=== PATIENT | male | born 1955 | race Caucasian/White ===

== ENCOUNTER → 2023-10-20 11:31 | Outpatient (REF) | payer MEDICARE, SELFPAY | LOC: DHCBC/DCA 11:31 | PROVIDERS: ATTENDING PHYSICIAN Internal Medicine Cardiovascular Disease; FAMILY PHYSICIAN Family Medicine | DX: R07.9 Chest pain, unspecified (principal) | CPT/HCPCS: 78452; 93017; A9500 ==

== ENCOUNTER 2023-10-24 07:34 | Day surgery (SDC) | payer MEDICARE, SELFPAY ==
[2023-10-24] VITALS (16 sets, daily range): BP systolic 141–168; BP diastolic 76–92; BMI 26.3
[2023-10-24] MEDS: NSS 250 ML IV (08:38)
--- NOTE | 2023-10-24 12:28 | ITS.CL.CATH ---
Architecture Analyst - Catheterization
Cardiac Catheterization
Procedure Report:
LEFT HEART CATHETERIZATION
Date of Procedure: October 24, 2023
Referring: Dr. Flip Arce
PROCEDURES:
1. Left heart catheterization with coronary and single-plane left ventriculography
INDICATION: This is a 67-year-old gentleman with a past medical history notable for coronary artery disease and stenting of the mid LAD in January 2007 with placement of a 4.0 x 18 mm Vision stent that was postdilated with a 4.5 mm noncompliant
balloon. He did very well until January 2023 when he presented to [facility] with unstable anginal symptoms and was referred to [facility] for coronary angiography. He was found to have a 90% stenosis within the
stented segment just proximal to the origin of the second diagonal branch. Balloon angioplasty was performed with a 2.5 x 12 mm balloon. OCT was then performed and demonstrated appropriate sizing of the former stent. In addition, and highlighted
that the mechanism of restenosis was entirely based on intimal hyperplasia and subsequent difficulty was encountered when trying to implant the new stent even when using high-pressure noncompliant balloons. The fibrotic lesion was dilated using a
3.0 mm NC balloon and was followed by placement of a 3.25 x 18 mm Xience stent that was implanted at 16 vijay. After stent implantation it was particularly difficult to advance balloons through the stented segment and the OCT catheter would not
recross. The stented segment was postdilated with a 3.5 mm NC balloon to 20 vijay with some residual in-stent restenosis for the fibrotic lesion that proved very difficult to fully expand. He did well for a few months but over the past several weeks
had been experiencing exertional chest tightness. A stress study was notable for development of chest discomfort at 5 minutes of exercise, however, he completed a full 9 minutes on the Goyo protocol. ECG changes occurred with ST depression in
leads II, III, aVF, and V5-V6 with a reversible apical defect. He is now referred for coronary angiography
ACCESS: Right radial artery, 6 Kiswahili sheath
HEMODYNAMICS : (mmHg)
AO (s/d) : 159/84
LV (s/d) : 153/17
LVEDP : 32
CORONARY FINDINGS
DOMINANCE: Right
LEFT MAIN: Normal
LEFT ANTERIOR DESCENDING: The LAD arises normally from the left main. Overlapping stents are noted in the mid LAD with 95% area of in-stent restenosis within the area that had just been treated with balloon angioplasty and stenting in January
2022. The mid to distal LAD is widely patent with only minor irregularities. The stented segment does span a small caliber diagonal branch.
CIRCUMFLEX: The circumflex is a medium caliber nondominant vessel giving rise to a medium caliber bifurcating OM1 which bifurcates in the mid vessel to 2 smaller daughter branches. The circumflex terminates in a moderate caliber OM 2.
RIGHT CORONARY ARTERY: The right coronary artery is a dominant vessel with minor irregularities over its course but no focal obstructive stenosis. The PDA is quite tortuous and free of obstructive stenosis. The posterolateral branch is small.
VENTRICULOGRAPHY: Left ventriculography is performed in an CONDON projection. The digital single-plane left ventricular ejection fraction is visually estimated at 60% with mild anterolateral hypokinesis noted
RADIATION SUMMARY: Fluoro Time (min): 2.7, Dose (mGy): 334, DAP (Gy.cm2) : 24.1
Closure Device: TR band
CONCLUSIONS
1. Restenosis in the mid LAD within the old stent from 2006 and recent stent from 01/2023. The more recent stent was not fully expanded due to the highly fibrotic nature of the restenotic lesion preventing full stent expansion even with
high-pressure balloon inflations. Refer to [facility] catheterization report from 02/03/23. The LAD stented segment has developed recurring 95% in-stent restenosis at the site of recent stenting
2. Stable coronary anatomy in the circumflex and RCA
3. Preserved left ventricular systolic function
RECOMMENDATIONS
1. Will discuss treatment options with the patient and his to include a second attempt at ballooning and re-stenting of the LAD with planned Shockwave intravascular lithotripsy versus minimally invasive direct coronary bypass (MIDCAB) GAXIOLA-LAD.
Copy to: Dr. Flip Arce
== END 2023-10-24 13:00 | disposition home or self-care (01) ==
LOC: CATH 07:34
PROVIDERS: ATTENDING PHYSICIAN Internal Medicine Interventional Cardiology; CONSULT PHYSICIAN Thoracic Surgery (Cardiothoracic Vascular Surgery); FAMILY PHYSICIAN Family Medicine; OTHER PHYSICIAN Internal Medicine Cardiovascular Disease
DX: I25.10 Atherosclerotic heart disease of native coronary artery without angina pectoris (principal); Z95.5 Presence of coronary angioplasty implant and graft; I48.0 Paroxysmal atrial fibrillation; Z86.73 Personal history of transient ischemic attack (TIA), and cerebral infarction without residual deficits; I10 Essential (primary) hypertension; E78.5 Hyperlipidemia, unspecified; G47.33 Obstructive sleep apnea (adult) (pediatric); Z79.01 Long term (current) use of anticoagulants; Z79.02 Long term (current) use of antithrombotics/antiplatelets
CPT/HCPCS: 93458; C1894; Q9967

== ENCOUNTER → 2023-10-26 15:31 | Outpatient (REF) | payer MEDICARE, SELFPAY | LOC: RAD 15:31 | PROVIDERS: ATTENDING PHYSICIAN Thoracic Surgery (Cardiothoracic Vascular Surgery); FAMILY PHYSICIAN Family Medicine; REFERRING PHYSICIAN Internal Medicine Cardiovascular Disease | DX: I25.10 Atherosclerotic heart disease of native coronary artery without angina pectoris (principal); Z01.818 Encounter for other preprocedural examination | CPT/HCPCS: 71275; 74174; Q9967 ==

== ENCOUNTER 2023-10-31 07:23 | Inpatient (IN) | payer MEDICARE, SELFPAY ==
[2023-10-27 12:05] VITALS: BMI 27.3
[2023-10-27 12:59] LABS: % Basophils 0.4 % (0-2); % Eosinophils 2.2 % (0-6); % Immature Granulocytes 0.2 % (0-0.5); % Lymphocytes 36.2 % (20.5-51.1); % Monocytes 11.9 % (1.7-9.3); % Neutrophils 49.1 % (42.2-75.2); Absolute Eosinophils 0.1 10^3/uL (0-0.7); Absolute Lymphocytes 1.7 10^3/uL (1.2-3.4); Absolute Monocytes 0.6 10^3/uL (0.1-0.6); Absolute Neutrophils 2.3 10^3/uL (1.4-6.5); Hematocrit 46.8 % (39.0-52.0); Hemoglobin 16.5 g/dL (13.0-18.0); Mean Corp Hgb Conc. 35.3 g/dL (33.0-37.0); Mean Corpuscular Hgb 31.3 pg (27.0-31.0); Mean Corpuscular Volume 88.6 fL (80.0-94.0); Nucleated Red Blood Cells % 0 % (-); Platelet Count 159 10^3/uL (130-400); Red Blood Cell Count 5.28 10^6/uL (4.70-6.10); Red Cell Dist. Width 12.6 % (11.5-14.5); White Blood Cell Count 4.6 10^3/uL (4.8-10.8)
[2023-10-27 13:09] LABS: Urine Albumin Negative (Neg - Trace); Urine Bilirubin Negative (Negative); Urine Character Clear (Clear); Urine Color Yellow; Urine Glucose 3+ (Negative); Urine Ketone Negative (Negative); Urine Leukocyte Negative (Negative); Urine Nitrite Negative (Negative); Urine Occult Blood Negative (Negative); Urine Urobilinogen Negative (Neg - 1+)
[2023-10-27 13:11] LABS: INR 1.36; PT 16.8 Sec (11.4-14.6)
[2023-10-27 13:12] LABS: APTT 34.8 Sec (23.4-35.0)
[2023-10-27 13:16] LABS: ALT (SGPT) 41 U/L (0-50); AST (SGOT) 44 U/L (17-59); Albumin 5.1 g/dl (3.5-5.0); Alkaline Phosphatase 55 U/L (38-126); Blood Urea Nitrogen 17 mg/dl (9-20); Calcium 9.8 mg/dl (8.4-10.2); Carbon Dioxide 30 mmol/L (22-30); Chloride 97 mmol/L (98-107); Direct Bilirubin 0.1 mg/dl (0.0-0.4); Estimated Creatinine Clearance 78 ml/min; Glucose 99 mg/dl (70-99); Sodium 140 mmol/L (135-145); Total Protein 7.7 g/dl (6.3-8.2); eGFR > 60.00
--- NOTE | 2023-10-27 13:59 | CM ---
Chart reviewed. Met with the patient and his in [facility]. 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 Reviewed preoperative and postoperative instructions and restrictions, along with showering guidelines. Gave patient 2 soaps. Patient is
independent of ADLS, lives with his in a 3 STH, 5 REDD, 0 DME. Patient is agreeable to a visit by CT Transitional RN. Plan is for the patient to return home with CT Transitional RN.
[2023-10-27 14:10] LABS: Glycohemoglobin (HgbA1c) 5.8 % (4.0-5.6)
[2023-10-31] VITALS (7 sets, daily range): BP systolic 112–125; BP diastolic 66–83; BMI 26.6
--- NOTE | 2023-10-31 07:35 | W.CVOR.SURPR ---
CVOR Surgeon Immed Pre Op
-
I have examined this patient prior to performance of the scheduled procedure.
The patient's condition is unchanged from the time of the dictated/written History and
Physical and the patient is able to undergo the scheduled procedure.
MIDCAB +/- KEV Clip
[2023-10-31] MEDS: BACTROBAN 2% OINTMENT 1 APPLIC NASAL ×2 (08:28→19:49)
[2023-10-31] MEDS: PROTONIX 40 MG PO (08:29)
[2023-10-31] MEDS: MAGNESIUM OXIDE 500 MG PO (08:29)
--- NOTE | 2023-10-31 08:49 | PTCARENOTE ---
Patient admitted into room 2265 in anticipation of surgery today. Patient states NPO since midnight, two CHG showers @ home. Prep/clip completed, admission information obtained, medications reconciled. ABO2 sent. EVA Carmella notified HR 40's, patient
admits to sotalol dose last evening - advised nursing hold preop BB. Spouse at bedside, both updated to plan of care.
--- NOTE | 2023-10-31 11:14 | PTCARENOTE ---
Ring removed and given to s/o. Patient transported to [facility] via bed.
--- NOTE | 2023-10-31 11:20 | CM ---
Chart reviewed. Patient is in the OR today. Patient is independent of ADLS, lives with his in a 3 STH, 5 REDD, 0 DME. Plan is for the patient to return home with CT Transitional RN. CM to follow
[2023-10-31 11:50] LABS: ACT+ - POC 126 Seconds (82-134)
[2023-10-31 11:56] LABS: Urine Albumin Negative (Neg - Trace); Urine Bilirubin Negative (Negative); Urine Character Clear (Clear); Urine Color Yellow; Urine Glucose 1+ (Negative); Urine Ketone Negative (Negative); Urine Leukocyte Negative (Negative); Urine Nitrite Negative (Negative); Urine Occult Blood Negative (Negative); Urine Urobilinogen Negative (Neg - 1+)
--- NOTE | 2023-10-31 14:22 | CON.INTV ---
Consultation
Consultation Request
Date/Time Consultation Requested: 10/31/2023 - 1546
Date/Time Consultation Performed: 10/31/2023 - 1414
Requesting Provider: DONNIE Mike
Performing Provider: Barrington Sepulveda MD
Reason for Consultation: s/p MIDCAB
Medical History
-
Chief Complaint: Elective MIDCAB
History of Present Illness:
67-year-old non-smoker with PMHx of CAD s/p BMS to LAD, Hx of CVA, pre-diabetes, HTN, LAZARUS on CPAP, and HLD who p/w coronary artery bypass. Pt known to cardiothoracic surgery with Dr. Snyder with last office visit on 10/26/2023. Pt has known CAD with
Hx of BMS to prox-mid LAD. He has developed restenosis of his BMS stent, and he has developed recurrent chest pain and indigestion. LHC performed earlier this month shows 95% in-stent restenosis of the mid LAD stent. He has excellent functional
status. There was also under-expansion of the most recent stent placed in 2022 due to the fibrotic nature of the restenotic lesion. LV pressures were elevated with LVEDP of 32mmHg. Robotic assisted MIDCAB was recommended, and today he
underwent robotic assisted MIDCAB with GAXIOAL in situ to LAD, and KEV-ligation with 35mm clip. There were no complications, and the pt was TRX to CVICU post-operatively for further care with the [facility] service consulted for further
recommendations.
When I saw the pt he was in bed in NAD. He was already extubated to CPAP in OR. He is currently on auto-CPAP [id number] with current CPAP pressure of 8.7cmH2O. He is saturating 98%, BP via a-line: 131/58, and HR 77. He has a mediastinal chest
tube x1. He is on amiodarone at 0.5mg/min, insulin gtt at 3.5 units/hr and cardene at 1.5 mg/hr. He is awake, answering questions appropriately. Pt's at bedside.
PMHx: HTN, Hx of CVA, CAD s/p BMS to LAD, HLD, A-fib, LAZARUS on CPAP, pre-diabetes, colonic polyps
PSHx: Mastoidectomy, left foot wound drainage, BMS to LAD
Past Medical History
Past Medical History: Other (Above as per HPI)
Past Surgical History: Other (Above as per HPI)
Social History
Tobacco: Non-smoker
Alcohol: Daily (2 glasses of wine)
Personal:
Living: With Family
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
Family History
Family History: Diabetes (Father ) and Hypertension (Father )
Allergies / Home Medications
Allergies
Allergy/AdvReac Type Severity Reaction Status Date / Time
No Known Allergies Allergy Verified 10/26/23 11:30
Home Medications
�Medication �Instructions �Recorded �Confirmed �Last Taken �Type
hydrochlorothiazide 25 mg tablet 25 mg PO DAILY Fluid 01/06/21 10/31/23 10/30/23 08:00 History
retention/Swelling
apixaban 5 mg tablet (Eliquis) 5 mg PO BID Blood clot 05/04/21 10/31/23 10/27/23 20:00 History
prevention/tx
clopidogrel 75 mg tablet (Plavix) 75 mg PO DAILY 10/24/23 10/31/23 10/24/23 08:00 History
empagliflozin 10 mg tablet 10 mg PO DAILY 10/24/23 10/31/23 10/27/23 08:00 History
(Jardiance)
sildenafil 100 mg tablet (Viagra) 100 mg PO DAILY PRN ED 10/24/23 10/26/23 Unknown History
sotalol 80 mg tablet 40 mg PO BID Arrhythmia 10/24/23 10/31/23 10/30/23 20:00 History
lisinopril 40 mg tablet 40 mg PO DAILY 10/26/23 10/31/23 10/28/23 08:00 History
rosuvastatin 20 mg tablet 20 mg PO DAILY 10/26/23 10/31/23 10/30/23 18:00 History
aspirin 81 mg tablet,delayed 81 mg PO DAILY 10/31/23 10/31/23 10/30/23 08:00 History
release
Review of Systems
-
History Source: Patient
All other systems: Negative unless noted
Vitals / Labs / Diagnostic Testing
Vital Signs
Temp Pulse Resp Pulse Ox
98 F 77 11 97
10/31/23 16:30 10/31/23 16:32 10/31/23 16:32 10/31/23 16:32
Lab Data
10/31/23 16:18
Laboratory Results
10/31/23
16:18
pH 7.34 L
pCO2 50 H
pO2 144 H
HCO3 27.0
O2 Delivery Level
Microbiology
10/27/23 12:23 Nose MRSA Screen - Final
No Methicillin Resistant Staphylococcus aureus isolated.
Diagnostic Testing:
Physical Exam
-
HEENT: Normocephalic and Anicteric
Cardiovascular: S1/S2 and Peripheral Edema (negative)
Respiratory: Wheeze (negative), Rales (negative), Rhonchi (negative) and Non-Labored Respirations
GI: Soft, Non Distended, Non Tender and Normal Bowel Sounds
Neurology: Awake and Alert
Skin: Warm and Dry
General: Respiratory Distress (negative), Comfortable, Chills (negative) and Sweats (negative)
Assessment
-
Assessment: 67-year-old non-smoker with PMHx of CAD s/p BMS to LAD, Hx of CVA, pre-diabetes, HTN, LAZARUS on CPAP, and HLD who p/w coronary artery bypass. Pt known to cardiothoracic surgery with Dr. Snyder with last office visit on 10/26/2023. Pt has
known CAD with Hx of BMS to prox-mid LAD. He has developed restenosis of his BMS stent, and he has developed recurrent chest pain and indigestion. LHC performed earlier this month shows 95% in-stent restenosis of the mid LAD stent. He has
excellent functional status. There was also under-expansion of the most recent stent placed in 2022 due to the fibrotic nature of the restenotic lesion. LV pressures were elevated with LVEDP of 32mmHg. Robotic assisted MIDCAB was recommended,
and today he underwent robotic assisted MIDCAB with GAXIOLA in situ to LAD, and KEV-ligation with 35mm clip. There were no complications, and the pt was TRX to CVICU post-operatively for further care with the [facility] service consulted for further
recommendations.
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
Impression:
#CAD involving proximal LAD with in-stent restenosis s/p robotic-assisted minimally invasive direct coronary artery bypass + KEV ligation with 35mm clip (POD #0)
#LAZARUS on auto-CPAP at home ([id number])
#Pre-diabetes
#CAD s/p BMS to prox-mid LAD c/b in-stent restenosis
#Hx of CVA
#HTN
Plan:
Pt already extubated to auto-CPAP in OR
Maintain SpO2 >90-94%
prn nebulized bronchodilators
Pulmonary artery catheter parameters will be followed
Pressors/antihypertensive/inotropes/diuretics will be provided as needed
Maintain MAP>65
Replete electrolytes with K>4, Mg>2
Monitor chest tube output (mediastinal chest tube x1)
Monitor hemoglobin
Monitor platelet count and coags
Transfuse blood products as needed to maintain Hb>7g/dL, plt>50k (given post-operative status)
CT surgery managing chest tubes
Monitor blood sugar to maintain euglycemia with goal BG 140-180
Insulin drip per protocol
Aspiration precautions
DVT prophylaxis
Early nutrition
Early mobilization
Critical care statement: A total of 41 minutes of critical care time was provided for this patient today. This includes management of ventilator, spontaneous breathing trial, arterial blood gases, pressors, of unstable vital signs, evaluation of the
patient at bedside, reviewing the patient's pertinent medical records including radiographs, microbiology, laboratory evaluations, and discussion with primary team and critical care nursing.
[2023-10-31 14:36] LABS: B.E. - POC 1.3 mmol/L; Glucose - POC 95 mg/dl (70-99); HCO3 - POC 26 mmol/L (21-29); Hematocrit - POC 41 % PCV (42-52); Hemodilution- POC Yes; Hemoglobin Calculated - POC 13.8; Ionized Calcium - POC 1.19 mmol/L (1.12-1.27); O2 Saturation %Calculated-POC 99.9 5 (92-96); PCO2 - POC 42 mmHg (35-45); PO2 - POC 339 mmHg (80-100); POC Comment PRE; Potassium - POC 3.6 mmol/L (3.6-5.0); Sodium - POC 141 mmol/L (135-145); pH - POC 7.41 (7.35-7.45)
[2023-10-31 15:32] LABS: B.E. - POC -0.4 mmol/L; Glucose - POC 139 mg/dl (70-99); HCO3 - POC 26 mmol/L (21-29); Hematocrit - POC 37 % PCV (42-52); Hemodilution- POC Yes; Hemoglobin Calculated - POC 12.7; Ionized Calcium - POC 1.09 mmol/L (1.12-1.27); O2 Saturation %Calculated-POC 99.4 5 (92-96); PCO2 - POC 47 mmHg (35-45); PO2 - POC 164 mmHg (80-100); POC Comment ABG; Potassium - POC 3.2 mmol/L (3.6-5.0); Sodium - POC 140 mmol/L (135-145); pH - POC 7.35 (7.35-7.45)
[2023-10-31 15:38] LABS: ACT+ - POC > 1003 Seconds (82-134)
[2023-10-31 15:38] LABS: ACT+ - POC 112 Seconds (82-134)
[2023-10-31 15:39] LABS: Glucose - POC 124 mg/dl (70-99); HCO3 - POC 26 mmol/L (21-29); Hematocrit - POC 38 % PCV (42-52); Hemodilution- POC Yes; Hemoglobin Calculated - POC 12.9; Ionized Calcium - POC 1.41 mmol/L (1.12-1.27); O2 Saturation %Calculated-POC 99.8 5 (92-96); PCO2 - POC 44 mmHg (35-45); PO2 - POC 244 mmHg (80-100); POC Comment POST; Potassium - POC 3.6 mmol/L (3.6-5.0); Sodium - POC 140 mmol/L (135-145); pH - POC 7.39 (7.35-7.45)
--- NOTE | 2023-10-31 15:49 | W.PN.CT.SURG ---
CT Surgery Operative Note
-
CARDIAC SURGERY OPERATIVE REPORT
Preoperative Diagnosis: Coronary Artery Disease with proximal LAD involvement and in-stent restenosis, symptomatic
Postoperative Diagnosis: Same
Procedure(s) Performed:
1. Robotic assisted MIDCAB (single-vessel bypass GAXIOLA in situ to LAD)
2. Robotic assisted harvest of internal mammary artery with anterolateral mini thoracotomy for CABG
3. Transesophageal echocardiography
4. Transonic Flowprobe assessment of GAXIOLA graft
5. Left atrial appendage ligation, 35mm clip
Date of Surgery: 10/31/2023
Comorbidities:
1. Coronary artery disease involving the proximal LAD
2. History of VA status post stenting, with in-stent restenosis in unstable angina requiring additional stenting with restenosis
3. Hypertension
4. Hyperlipidemia
5. History of a CVA in 2014
6. History of paroxysmal atrial fibrillation
7. On chronic anticoagulation and antiarrhythmic drugs
8. LAZARUS on CPAP
9. Prediabetic
Attending Surgeon: Roque Snyder MD, MS
Assistants: Roque Dias PA-C (present and necessary to print shop assistant, exchanging robotic instruments, retraction, suction, exposure, suture management, and wound closure under my direction)
Anesthesiology: Kevin Chopra MD and Nasrin Casanova CRNA
Scrub and Circulating RNs: Aurelia Payton RN, Michelle Bhatia RN
Automobile Lights Assembler: Nasrin Kelsey CCP
Anesthesia: GETA
EBL: per perfusion records
Products: None
Implants: 35mm Pro 2 AtriClip, [id number]
Indication(s) for Procedures: This is a 67-year-old male who had a history of a previous VA and stenting in 2006. He did well since that time and then developed restenosis of the stent and new symptoms. He underwent additional stent procedure
inside of his original bare-metal stent in 2022 and later developed in-stent restenosis with symptoms. The STS risk was discussed with the patient in the office and the shared decision making was to pursue a single-vessel bypass using his
mammary artery to his LAD via a mini invasive approach. Given his history of paroxysmal atrial fibrillation on anticoagulation and antiarrhythmics, I offered to ligate his left atrial appendage at time of surgery.
Conduit(s) Quality/Internal Diameter:
GAXIOLA -good quality, very tortuous vessel, flow probe analysis, mean flow of 16.8 cc/min, max flow 40 cc a minute n, PI of 2.6
Target(s) Quality/Internal Diameter:
LAD -good quality vessel, accommodated 2.0 mm shunt
Findings: Left ventricular ejection fraction preoperatively was 65% with no regional wall motion abnormalities. Following surgery his EF remained the same 65%. There were no new regional wall motion abnormalities at the inclusion of the case. The
GAXIOLA was harvested in a skeletonized fashion. The mammary graft was verified with Transonic Flowprobe to have excellent signals as listed above. His left atrial appendage was verified to be free of any thrombus or debris preoperative. It was
sized to a 35 mm clip which was deployed and then verified by JENNA to be totally occlusive.
Description of Procedure: The patient was taken to the operating room. Their identity and procedure to be performed were verified and they were positioned supine on the operating table. Induction via general anesthesia with endotracheal intubation
was performed and central venous access and arterial monitoring were inserted. A preoperative transesophageal echocardiogram was performed to assess cardiac function and valvular function. The patient was then prepped and draped from chin to feet in
a sterile fashion and positioned with left side bumped up and left arm down. A preoperative time-out was performed with all members of the team present. A Veress needle was used to enter the chest after stopping ventilation with the left lung
verified by anesthesia. We started with slow pressure insufflation which they tolerated. An 8 mm port was inserted in the fourth intercostal space laterally and a camera was inserted verifying no intrathoracic iatrogenic injuries. 2 additional
ports(8 mm and 12 mm mm) were placed along the midaxillary line on either side of the camera port. The robotic platform was then docked and targeted towards the mammary. At this point, using a spatula cautery a small pericardiotomy was made at the
undersurface inferior to the phrenic nerve. I then extended the incision along the pericardium towards the foot and then up towards the head. The left atrial pannus was fully visualized. The right robotic arm was then used to elevate the
pericardium and removed to expose the left atrial appendage in its entirety. The c2 tactical analysis technician was removed from the 12 mm port and a 35 mm clip was inserted and then deployed flush to the base after verifying JENNA that was totally occlusive with no
residual significant stump. The mammary was harvested in a skeletonized fashion. Once sufficient length was obtained, an anterior pericardiotomy was created to identify the distal target. This was marked with a marker robotically. The cardiac
stabilizer arm was then inserted through one of the robotic ports under direct vision and aimed up towards the anterior chest wall. Full heparinization was given (a total of 33,000 units). 3 Hem-o-caren clips were used to occlude and divide the
mammary distally at its bifurcation. The robot platform was then undocked and the patient and a left anterior thoracotomy was created over the target vessel. Upon entering the thoracic cavity the mammary and LAD were visible. The mammary was
divided after placing a 5-0 stay suture on either side of the mammary. A soft tissue and thoracotomy retractor was placed to facilitate exposure and a pericardial well was created. The ACT was confirmed to be over 400.
The cardiac suction stabilizer was used to isolate the LAD target. The distal end of the mammary was prepped and beveled to size. We verified orientation and length of the MARIE and found brisk flow. A coronary arteriotomy was created and enlarged
with coronary henriquez scissors. A 2mm shunt was inserted to facilitate exposure and continued [place] coronary perfusion. An end-to-side anastomosis was created with a 7-0 prolene. The bulldog on the mammary was removed which demonstrated excellent
graft flow. The shunt was then remove and demonstrated excellent [place] flow. Appropriate hemostasis was confirmed. The mammary graft was inspected and was free from kinking or twisting and flowprobe evaluation demonstrated good flow and PI. A test
dose of protamine was administered and the patient was monitored for any adverse reaction before resuming protamine. A 19F gerber drain into the pericardium and through the posterior pericardiotomy into the left chest. Fascia was approximated with #1
vicryl suture. Local analgesia was administered to the surgical sites. The subcutaneous, dermis and epidermis were closed in layers in a running fashion. The skin wound was cleansed and dressed.
All instrument, sponge, and needle counts were confirmed to be correct x 2 at the end of the operation. The patient was transferred to the cardiac intensive care unit extubated in critical but stable condition.
I, Dr. Roque Snyder, was present, scrubbed for, and performed all critical elements of this procedure.
Roque Snyder MD, MS
Cardiothoracic Surgeon
[facility]
This operative dictation was created using the Medisse dictation system. Please excuse any grammatical, typographical, or 'sound alike' errors
[2023-10-31] MEDS: TYLENOL PO (15:55)
[2023-10-31] MEDS: PACERONE PO (16:03)
[2023-10-31] MEDS: NOVOLOG FLEXPEN SC ×2 (16:10→16:45)
[2023-10-31] MEDS: NEURONTIN PO (16:11)
[2023-10-31 16:30] LABS: Glucose - Point of Care 131 mg/dl (70-99)
[2023-10-31 16:37] LABS: B.E. 0.3 mmol/L; Ionized Calcium 1.23 mMOL/L (1.15-1.33); O2 Saturation % 99.8 % (94-98); PCO2 50 mmHg (35-48); PO2 144 mmHg (83-108); Potassium 3.5 mMOL/L (3.5-5.1); Sodium 134 mMOL/L (136-145); pH 7.34 (7.35-7.45)
[2023-10-31 16:39] LABS: Hematocrit 42.8 % (39.0-52.0); Hemoglobin 15.5 g/dL (13.0-18.0); Platelet Count 141 10^3/uL (130-400)
[2023-10-31] MEDS: NSS 500 IV (16:44)
[2023-10-31] MEDS: ANCEF 10 IV ×2 (16:44)
--- NOTE | 2023-10-31 16:45 | PTCARENOTE ---
Patient received from CVOR s/p midCABG/KEV. RIJ Cordis w/CVP transduced, R radial arterial line present - leveled, flushed, and calibrated w/good waveforms returned. L laterally terminating mediastinal chest tube placed to -20cm suction, no air leak
appreciated. Herrera catheter to gravity. All procedural sites stable. Cardiac rhythm oscillating between NSR v afib, Dr. Snyder notified. Spouse to bedside, updated. See work list for full assessment, interventions performed, and intravenous infusions
and titrations.
[2023-10-31 16:52] LABS: APTT 30.6 Sec (23.4-35.0); Blood Urea Nitrogen 13 mg/dl (9-20); Estimated Creatinine Clearance 121 ml/min; Glucose 135 mg/dl (70-99); Magnesium 1.9 mg/dl (1.6-2.3); PT 17.9 Sec (11.4-14.6)
[2023-10-31] MEDS: KCL 50 IV (16:53)
[2023-10-31 17:06] LABS: Glucose - Point of Care 159 mg/dl (70-99)
--- NOTE | 2023-10-31 17:07 | W.PN.CARDCBS ---
Addendum entered and electronically signed by Pearl Umana MD 10/31/23 17:33:
I saw and examined the patient.
The Manager Multicultural's note was reviewed and I agree with the note.
Comment: Overall patient is doing well. He was extubated intraoperatively post single-vessel CABG.
Vital signs and lab work reviewed. He is off pressors currently and off sedation, mentating well. On exam patient is still somnolent but arousable to voice, oriented x 3, irregularly irregular rhythm, tachycardic, normal S1 and S2, lungs are clear
to auscultation anteriorly, abdomen is soft, nontender, nondistended with active bowel sounds, warm extremities
Initial EKG postoperatively was noted to be in sinus rhythm but on telemetry patient appears to be in atrial fibrillation which she has a history of.
Recommendations:
1. Continue with postoperative care.
2. Amiodarone drip is being started with last dose of sotalol 40 mg twice daily being last night. We will continue to monitor QTc on EKG.
3. Currently Eliquis is on hold since preop. We will discuss resuming when safe from a surgical standpoint.
Pearl mUana MD, [facility], [facility]
Original Note:
Today's Communication / Plan
-
Amiodarone gtt being started, last dose of sotalol 40 mg BID was last night, follow QTc on ECG in AM
No flow is noted distal to the clip in the appendage by color Doppler on intra-op JENNA, Eliquis on hold pre-op
Impression / Plan
-
PCP: Dr. Delroy Dhillon
Cardiology: Dr. Arce
Impression:
CAD
s/p NSTEMI with BMS to LAD and PTCA Diag-1 01/2007
s/p CABG 10/31/23
Afib with RVR
Paroxysmal Afib with RVR
diagnosed following Linq implant 01/2021
Chronic sotalol therapy
Chronic Eliquis OAC
Linq implant 01/2021
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
h/o CVA 01/2015
HTN
Hyperlipidemia
LAZARUS on CPAP
Stress echo 06/11/14: Completed 13 METS, EF 55-60%, no evidence of myocardial ischemia on SE images
Echo 01/30/15: EF 55-60%, trace MR, no aortic regurgitation
JENNA 01/07/21: EF 55-60%, no thrombus in KEV, mild to mod aortic plaque, mildly dilated aortic root 4.0 cm at Sinus of Valsalva, normal interatrial septum, no evidence of shunt by color flow Doppler or agitated saline
Plan:
-Patient had elective cath at 10/24/23 and was found to have restenosis in the mid LAD within the old stent from 2006 and recent stent from 01/2023. The more recent stent was not fully expanded due to the highly fibrotic nature of the restenotic
lesion preventing full stent expansion even with high-pressure balloon inflations. The LAD stented segment had developed recurring 95% in-stent restenosis at the site of recent stenting. Patient was referred to CT surgical team for CABG evaluation
and presented today for elective CABG.
-Post-op ECG shows SR without ischemic changes, but patient later developed recurrence of rapid Afib.
-Patient with known h/o paroxysmal Afib and he is chronically on sotalol 40 mg BID. Last dose of sotalol was 10/30/23 PM. Amiodarone gtt being ordered. Follow QTc on tele and with ECG in AM
-Patient is chronically on Eliquis 5 mg BID which was held for surgery. He had KEV ligation 10/31/23 and no flow is noted distal to the clip in the appendage by color Doppler on intra-op JENNA.
-Cardene running at 5.
-Will follow
Progress Note - Windows Vmware Administrator
Subjective
Date of Service: October 31, 2023
No chest pain
Objective
Labs:
10/31/23 16:18
Labs
Hgb 15.5 g/dL (13.0-18.0) 10/31/23 16:18
Hct 42.8 % (39.0-52.0) 10/31/23 16:18
Plt Count 141 10^3/uL (130-400) 10/31/23 16:18
PT 17.9 Sec (11.4-14.6) H 10/31/23 16:18
INR 1.50 10/31/23 16:18
APTT 30.6 Sec (23.4-35.0) 10/31/23 16:18
Sodium 140 mmol/L (135-145) 10/27/23 12:23
Potassium 4.0 mmol/L (3.5-5.1) 10/27/23 12:23
BUN 13 mg/dl (9-20) 10/31/23 16:18
Creatinine 0.6 mg/dL (0.7-1.3) L 10/31/23 16:18
Glucose 135 mg/dl (70-99) H 10/31/23 16:18
Vital Signs and I&O:
Vital Signs
Temp Pulse Resp Pulse Ox
98 F 77 11 97
10/31/23 16:30 10/31/23 16:32 10/31/23 16:32 10/31/23 16:32
Vital Signs
Temp Pulse Resp Pulse Ox
98 F 77 11 97
10/31/23 16:30 10/31/23 16:32 10/31/23 16:32 10/31/23 16:32
Physical Exam
Physical Exam
GEN: NAD. AAOx3
HEENT: MMM
LUNGS: Wearing NRB, no audible wheeze
CV: Reg, S1/S2, no murmur
ABD: ND
EXT: No edema B/L
NEURO: Gross non-focal
SKIN: No rash
[2023-10-31] MEDS: CORDARONE 518 MG IV (17:17)
[2023-10-31] MEDS: CORDARONE 103 MG IV (17:18)
[2023-10-31 18:03] LABS: Glucose - Point of Care 154 mg/dl (70-99)
--- NOTE | 2023-10-31 18:40 | PTCARENOTE ---
Patient CPAP brought in from home. Patient transitioned from 8l simple mask to 6lnc w/CPAP overlying. SaO2 @ 97%, tolerating well.
[2023-10-31 19:08] LABS: Glucose - Point of Care 127 mg/dl (70-99)
[2023-10-31] MEDS: LOW STRENGTH ASPIRIN 81 MG PO (19:48)
[2023-10-31] MEDS: SENOKOT-S 1 TABLET PO (19:49)
[2023-10-31] MEDS: FLEXERIL 5 MG PO (19:49)
[2023-10-31] MEDS: MAGNESIUM SULFATE 50 IV (19:50)
[2023-10-31 20:10] LABS: Glucose - Point of Care 127 mg/dl (70-99)
[2023-10-31 20:16] LABS: Hematocrit 42.1 % (39.0-52.0); Hemoglobin 15.7 g/dL (13.0-18.0); Platelet Count 148 10^3/uL (130-400)
--- NOTE | 2023-10-31 20:32 | PTCARENOTE ---
Assumed care of pt from dayshift RN. Walking rounds completed. Pt AAOx3. Afebrile. ROLAND. Pt SR on the tele monitor. HR 80s. BP 120-130s/50-60s. CVP ~2-6. Palpable pulses throughout. Pt on 4 L NC w/ CPAP mask. POX 97-98%. Lung sounds diminished. IS
~500. Deep breathing encouraged. Left mediastinal CTx1 to -20 suction, no airleak noted at this time, and output WNL. Abdomen soft/nontender. Hypoactive BS. Denies nausea. Herrera catheter CDI and draining yellow urine. Right IJ cordis w/ SLICC & CVP
CDI. Right radial a-line CDI. All lines leveled, zeroed, and flushed. Right AC PIV CDI. Glycemic protocol followed. Cardene and Amiodarone infusing as ordered. See worklist for full nursing assessment and interventions. Pt repositioned in bed. Call
echeverria within reach.
[2023-10-31 21:07] LABS: Glucose - Point of Care 140 mg/dl (70-99)
[2023-10-31] MEDS: LOPRESSOR 12.5 MG PO (21:08)
[2023-10-31] MEDS: NEURONTIN 100 MG PO (21:08)
[2023-10-31] MEDS: PACERONE 200 MG PO (21:09)
[2023-10-31] MEDS: TYLENOL 1000 MG PO (21:09)
[2023-10-31 23:15] LABS: Glucose - Point of Care 115 mg/dl (70-99)
[2023-10-31] MEDS: ANCEF 5 IV (23:20)
[2023-10-31] MEDS: ROXICODONE 5 MG PO (23:20)
[2023-11-01] VITALS (23 sets, daily range): BP systolic 98–147; BP diastolic 61–81; PULSE 51–59; O2SAT 97–98; BMI 26.9
--- NOTE | 2023-11-01 00:29 | PTCARENOTE ---
Pt reassessed. Pt sinus rhythm to sinus cirilo on the tele monitor. HR 50-60s. BP 120s/50s. Cardene infusion titrated off. CVP ~1-3. Left mediastinal CT assessment unchanged from original. Pt remains on home CPAP machine w/ 4 L NC. POX 98-99%. Herrera
catheter CDI and pt voiding yellow urine >30 ml/hr. No nausea. Pt tolerating sips of water and oral meds. All surgical sites stable. Right IJ cordis w/ SLICC and CVP CDI. Right arterial line CDI. All lines leveled zeroed and flushed. Amiodarone drip
infusing as ordered. Glycemic protocol followed. Call echeverria within reach.
--- NOTE | 2023-11-01 01:07 | W.PN.CT ---
Today's Communication / Plan
-
Plan:
-No major issues overnight. Hemodynamically and neurologically intact
-Successfully extubated in the OR 10/31/23
-Weaned Cardene gtt, remains on insulin gtt per protocol. D/C'd amiodarone gtt for postop a-fib with RVR d/t sinus bradycardia @ 50 bpm
-No swan, U/O since OR 970 mL
-Monitor chest tube output: med 120/230
-Cont. current meds (ASA, Crestor, Amiodarone, Lopressor; will add Plavix, resumption of Eliquis with d/c of either ASA or Plavix on POD#4)
-D/C'd a-line this AM @ 0430
-Will transition off insulin gtt tomorrow since pt is a diabetic
-Telemetry phase once of insulin gtt
-Will d/c marrero catheter @ 0600
-No swan
-No temporary PW
-Maintain cordis (will d/c on POD#3)
-Wean off of O2 as tolerated
-Encourage use of IS
-OOB into chair/Ambulate
Assessment / Plan
-
Assessment:
-S/P Robotic assisted MIDCAB (single-vessel bypass GAXIOLA in situ to LAD)/ Robotic assisted harvest of internal mammary artery with anterolateral mini thoracotomy for CABG/ Left atrial appendage ligation, 35mm clip, by Dr. Snyder, 10/31/23, pod#1
-Coronary artery disease involving the proximal LAD, in-stent restenosis
-Unstable angina
-Hx NSTEMI S/P PCI with BMS to LAD and PTCA to D1, 01/2007
-LVEF 60% per intraop JENNA
-Mild dilated asc. aorta (3.7 cm)
-Hx CVA (2014 and 2020) S/P Linq recorder implant, 01/2021
-PAF (on chronic Eliquis)
-HTN
-HLD
-T2DM (hgb A1C 5.8)
-LAZARUS (uses CPAP)
-S/p b/l mastoidectomy
-S/p R rotator cuff repair
-Acute postop atelectasis
-Acute postop hypovolemia with subsequent hypervolemia
-Acute postop EKG changes c/w acute pericarditis (+rub)
-Acute postop A-fib with RVR, converted on Amiodarone bolus x 1 and gtt
Discussed patient care with: Cardiology, Nursing, Respiratory Therapy, Pharmacy and Care Team
Subjective
Procedure
S/P Robotic assisted MIDCAB (single-vessel bypass GAXIOLA in situ to LAD)/ Robotic assisted harvest of internal mammary artery with anterolateral mini thoracotomy for CABG/ Left atrial appendage ligation, 35mm clip, by Dr. Snyder, 10/31/23
-
Date of Service: November 01, 2023
Pt c/o mild incisional pain, otherwise feels well
Objective Data
-
PT 17.9 Sec (11.4-14.6) H 10/31/23 16:18
INR 1.50 10/31/23 16:18
APTT 30.6 Sec (23.4-35.0) 10/31/23 16:18
Vital Signs
Vital Signs
Temp Pulse Resp BP Pulse Ox
98.6 F 56 10 104/64 98
11/01/23 00:00 11/01/23 00:05 11/01/23 00:05 11/01/23 00:00 11/01/23 00:05
CT Intake/Output/Weight
10/31/23 10/31/23 11/01/23
06:59 18:59 06:59
Intake Total 176.1 / 596.3 420.2 / 596.3
Output Total 485 / 935 450 / 935
Balance -308.9 / -338.7 -29.8 / -338.7
SaO2: 98 (4L)
Physical Exam
-
General: Awake, Oriented and AOx3
Cardiovascular: Regular rate & rhythm, No Murmurs, Rub (likely d/t acute pericarditis) and No Gallop
Respiratory: Decreased Breath Sounds (at bases, otherwise clear)
Sternum: Stable
Incision: Clean, Dry, Intact and Dressing Intact
Extremities: No Edema
Data Reviewed
-
Lab Results: Results Reviewed
Medications: Active Meds Reviewed
Chest X-Ray: Report Reviewed and Image Reviewed
ECG: Report Reviewed and Image Reviewed
[2023-11-01 01:10] LABS: Glucose - Point of Care 102 mg/dl (70-99)
[2023-11-01 03:12] LABS: Glucose - Point of Care 113 mg/dl (70-99)
[2023-11-01 03:44] LABS: INR 1.41; PT 17.1 Sec (11.4-14.6)
[2023-11-01 03:45] LABS: Hematocrit 39.8 % (39.0-52.0); Hemoglobin 14.6 g/dL (13.0-18.0); Mean Corp Hgb Conc. 36.7 g/dL (33.0-37.0); Mean Corpuscular Volume 84.5 fL (80.0-94.0); Mean Platelet Volume 9.2 fL (7.4-10.4); Platelet Count 159 10^3/uL (130-400); Red Blood Cell Count 4.71 10^6/uL (4.70-6.10); Red Cell Dist. Width 12.5 % (11.5-14.5); White Blood Cell Count 10.8 10^3/uL (4.8-10.8)
[2023-11-01 03:58] LABS: Blood Urea Nitrogen 17 mg/dl (9-20); Calcium 8.8 mg/dl (8.4-10.2); Carbon Dioxide 24 mmol/L (22-30); Chloride 102 mmol/L (98-107); Estimated Creatinine Clearance 104 ml/min; Glucose 113 mg/dl (70-99); Magnesium 2.3 mg/dl (1.6-2.3); Potassium 4.1 mmol/L (3.5-5.1); Sodium 138 mmol/L (135-145); eGFR > 60.00
[2023-11-01 04:46] LABS: Hepatitis C Antibody Negative (Negative)
[2023-11-01 05:00] LABS: Glucose - Point of Care 100 mg/dl (70-99)
--- NOTE | 2023-11-01 05:00 | PTCARENOTE ---
Pt reassessed. Pt sinus cirilo on the tele monitor. HR 50s. BP 110s/60-70s. Pt using home CPAP machine. POX 94-96%. CT assessment unchanged. Herrera catheter intact and draining yellow urine. No nausea. All surgical sites stable. Labs drawn and sent.
EKG obtained. Right radial a-line and SLICC dc'd per CTPA. Pt repositioned in bed. GLycemic protocol followed. Amiodarone drip turned off ~0100 due to HR in the 40-50s. Call echeverria within reach.
[2023-11-01] MEDS: TYLENOL 1000 MG PO ×3 (05:39→21:08)
[2023-11-01] MEDS: TORADOL 15 MG IV ×3 (05:39→18:01)
[2023-11-01 07:03] LABS: Glucose - Point of Care 118 mg/dl (70-99)
--- NOTE | 2023-11-01 07:12 | ECGCV ---
<Chandra Mancera> notified of ECG critical value identified by electronic interpretation on ECG completed on <11/01/2023>, at <0400>.
--- NOTE | 2023-11-01 07:32 | W.PN.ANS.POP ---
Anesthesia Post Operative
- Anesthesia Post Op Note
Vital Signs Stable-See Nursing Note: Yes
Airway Patent: Yes
Adequate Pain Control: Yes
Change in Mental Status: No
Current Postoperative Nausea & Vomiting: No
Anesthesia Complications: No
General Anesthetic Recall: No
Unplanned Admission: No
Post Op Hydration Adequate: Yes
--- NOTE | 2023-11-01 08:01 | W.PN.INTV ---
Today's Communication / Plan
Recommendations
Up OOB as tolerated
Removal of R�IJ cordis per CT surgery team
Cardiac rehab consult
Pain control
Encourage incentive spirometer use
Outpatient pulmonary follow-up for his LAZARUS on CPAP by his braille teacher, Dr. Duran
Insulin drip is planned to stop this afternoon, at which point would recommend insulin SQ supplementation. He will be transferred to CVICU�telemetry status after insulin drip is discontinued. At that point Er Rn/Pulmonary service will sign
off. Please call back with any pulmonary questions.
Assessment
-
Assessment: 67-year-old non-smoker with PMHx of CAD s/p BMS to LAD, Hx of CVA, pre-diabetes, HTN, LAZARUS on CPAP, and HLD who p/w coronary artery bypass. Pt known to cardiothoracic surgery with Dr. Snyder with last office visit on 10/26/2023. Pt has
known CAD with Hx of BMS to prox-mid LAD. He has developed restenosis of his BMS stent, and he has developed recurrent chest pain and indigestion. LHC performed earlier this month shows 95% in-stent restenosis of the mid LAD stent. He has
excellent functional status. There was also under-expansion of the most recent stent placed in 2022 due to the fibrotic nature of the restenotic lesion. LV pressures were elevated with LVEDP of 32mmHg. Robotic assisted MIDCAB was recommended,
and today he underwent robotic assisted MIDCAB with GAXIOLA in situ to LAD, and KEV-ligation with 35mm clip. There were no complications, and the pt was TRX to CVICU post-operatively for further care with the Er Rn service consulted for further
recommendations.
Chronic conditions CORPORATE GENERAL MANAGER: HTN, Hx of CVA, CAD s/p BMS to LAD, HLD, A-fib, LAZARUS on CPAP, pre-diabetes, colonic polyps
Impression:
#CAD involving proximal LAD with in-stent restenosis s/p robotic-assisted minimally invasive direct coronary artery bypass + KEV ligation with 35mm clip (POD #1)
#LAZARUS on auto-CPAP at home ([id number])
#Pre-diabetes
#CAD s/p BMS to prox-mid LAD c/b in-stent restenosis
#Hx of CVA
#HTN
Plan:
Pt was extubated to auto-CPAP in OR post-operatively on 10/31/2023
Maintain SpO2 >90-94%
prn nebulized bronchodilators - not currently bronchospastic
Continue with nocturnal CPAP; he follows with braille teacher, Dr. Duran, and I advised him to continue with regular scheduled follow-up regarding his LAZARUS management. He showed me his CPAP usage sunni on his phone and his residual AHI over this last
month of October 2023 was an average of 2�4
Removal of R�IJ cordis per CT surgery team
Maintain MAP>65
Replete electrolytes with K>4, Mg>2
Monitor chest tube output (mediastinal chest tube x1)
Monitor hemoglobin
Monitor platelet count and coags
Transfuse blood products as needed to maintain Hb>7g/dL, plt>50k (given post-operative status)
CT surgery managing chest tubes
Monitor blood sugar to maintain euglycemia with goal BG 140-180
Insulin drip per protocol --> plan to titrate off this afternoon at which point would start insulin SQ administration to maintain BG goal as above
Aspiration precautions
DVT prophylaxis
Early nutrition
Early mobilization
Patient is stable on room air, saturating 94% and using his CPAP with sleep. Patient already has follow-up with his braille teacher, Dr. Duran, which I advised to continue with regular scheduled follow-up. Insulin drip is planned to stop this
afternoon, at which point would recommend insulin SQ supplementation. He will be transferred to CVICU�telemetry status after insulin drip is discontinued. At that point Er Rn/Pulmonary service will sign off. Thank you for allowing us to be
involved in the care of this patient. Please call back with any pulmonary questions.
Data:
CXR 11/01/2023: The right internal jugular approach catheter appears slightly kinked proximally, otherwise stable positioning the support lines and tubes; Minimal left basilar atelectasis, otherwise the lungs are clear. No pneumothorax.
Total time spent today was 75 minutes for this encounter. Time includes reviewing laboratory test/imaging results, reviewing pertinent medical records, obtaining and reviewing medical history, performing an appropriate exam, ordering medications,
tests and procedures. Time also includes documentation of this encounter, coordinating patient care and communicating with other healthcare professionals. Total time does not include separately billed tests performed on this date of service.
Subjective Dataa
Subjective Data
Date of Service:
Date of Service: November 01, 2023
Chief Complaint: Er Rn Follow Up and Pulmonary Follow Up
Subjective:
Patient was seen and evaluated today bedside. Patient wore his CPAP overnight. Patient's is at bedside currently and all questions were answered. He currently is on insulin drip at 3.5 units/hr, and heart rate 54 with BP 114/72 and
saturating 94% on room air. R�IJ cordis in place. He has some chest discomfort when he uses the incentive spirometer otherwise he feels well denying SOB, chest pain at rest, DIAZ, abdominal pain, nausea, fevers or chills. Mediastinal chest tube x 1
placed well.
Review of Systems
General: Other (Negative unless mentioned above)
Objective Data
Data Reviewed
Vital Signs / I&O / Oxygen:
Vital Signs
Temp Pulse Resp BP Pulse Ox
98.2 F 56 16 115/77 97
11/01/23 09:00 11/01/23 09:00 11/01/23 07:00 11/01/23 08:52 11/01/23 09:00
Intake and Output
10/31/23 11/01/23 11/02/23
06:59 06:59 06:59
Intake Total 723.8 / 735.1 272.6 / 272.6
Output Total 1230 / 1290 90 / 90
Balance -506.2 / -554.9 182.6 / 182.6
SaO2 97
Nasal Cannula flow liters per 4
minute
Physical Exam
General: Respiratory Distress (negative), Comfortable and Good Appetite
HEENT: Normocephalic and Anicteric
Cardiovascular: S1-S2 and Peripheral Edema (negative)
Respiratory: Wheeze (negative), Crackles (negative), Rhonchi (negative), Non-Labored Respirations and Chest Tube (Mediastinal chest tube x 1)
GI: Soft, Non Distended, Non Tender and Normal Bowel Sounds
Neurology: AO x 3 and Tremors (negative)
Skin: Warm, Dry, Jaundice (negative) and Rash (negative)
Labs/Micro/Reports
Lab Data
11/01/23 03:08
11/01/23 03:08
Laboratory Results
10/31/23 11/01/23
16:18 03:08
PT 17.9 H 17.1 H
INR 1.50 1.41
APTT 30.6
pH 7.34 L
pCO2 50 H
pO2 144 H
HCO3 27.0
O2 Delivery Level
[2023-11-01] MEDS: PACERONE 200 MG PO (08:48)
[2023-11-01] MEDS: LASIX 40 MG IV (08:48)
[2023-11-01] MEDS: ANCEF 5 IV ×2 (08:48→16:07)
[2023-11-01] MEDS: PLAVIX 75 MG PO (08:49)
[2023-11-01] MEDS: NEURONTIN 100 MG PO ×3 (08:49→21:08)
[2023-11-01] MEDS: COLCHICINE 0.6 MG PO (08:49)
[2023-11-01] MEDS: SENOKOT-S 1 TABLET PO ×2 (08:49→19:50)
[2023-11-01] MEDS: PROTONIX 40 MG PO (08:49)
[2023-11-01] MEDS: LOW STRENGTH ASPIRIN 81 MG PO (08:49)
[2023-11-01] MEDS: MAGNESIUM OXIDE 500 MG PO ×2 (08:50→19:50)
[2023-11-01 08:52] LABS: Glucose - Point of Care 329 mg/dl (70-99)
[2023-11-01] MEDS: LOPRESSOR 12.5 MG PO ×2 (08:52→19:50)
[2023-11-01] MEDS: BACTROBAN 2% OINTMENT 1 APPLIC NASAL ×2 (08:52→19:51)
[2023-11-01 08:55] LABS: Glucose - Point of Care 146 mg/dl (70-99)
--- NOTE | 2023-11-01 09:00 | PTCARENOTE ---
Blood glucose obtained, 329. Rechecked, 146, more consistent w/prior findings.
[2023-11-01] MEDS: NOVOLOG FLEXPEN SC (09:35)
--- NOTE | 2023-11-01 09:51 | PTCARENOTE ---
Patient received from multimedia educational specialist resting oob in chair, AAO X 3, states pain controlled at this time. NSR via cm, SaO2 @ 94% on RA. RIJ Cordis w/kvo infusing. Insulin infusing peripherally, titrating per glycemic protocol. L laterally terminating
mediastinal chest tube to -20cm suction, no air leak noted. All procedural sites stable. Herrera d/c'd @ 0600, DTV, denies urge. All procedural sites stable. Patient updated to plan of care for the day, in agreement. See work list for full assessment
and interventions performed.
[2023-11-01 10:56] LABS: Glucose - Point of Care 155 mg/dl (70-99)
[2023-11-01] MEDS: FOLVITE 1 MG PO (11:58)
--- NOTE | 2023-11-01 12:15 | CM ---
Chart reviewed. Patient OOB sitting in the chair, at bedside. Patient is independent of ADLS, lives with his in a 3 S[address], 5 REDD, 0 DME. Plan is for the patient to return home with CT Transitional RN. CM to follow
[2023-11-01] MEDS: NOVOLOG FLEXPEN 4 UNITS SC (12:20)
--- NOTE | 2023-11-01 12:30 | W.PN.CARDCBS ---
Addendum entered and electronically signed by Flip Arce MD 11/01/23 13:15:
I saw and examined the patient.
The BARKEEP or PA's note was reviewed and I agree with the note.
Comment: General: Well developed, well nourished in NAD.
Neck: Supple, no JVD, HJR, carotids +2 B/L, no bruits bilaterally.
Heart: Non displaced PMI, RRR, no murmurs, No S3, S4, pericardial friction rub
Lungs: Scattered rhonchi
Extremities: No clubbing, cyanosis or edema bilaterally.
Neuro: Grossly nonfocal, awake, alert and oriented x3.
Stable cardiology status status post MIDCAB. In sinus rhythm at present. Amiodarone has been started but will ask CT surgery whether he could be put back on sotalol which he has been on for couple years with reasonable control of A-fib. Continue
colchicine for pericarditis. Eventual restart of Eliquis. Discussed with CT surgery
Original Note:
Today's Communication / Plan
-
Now ordered amiodarone 200 mg TID
Follow on tele
Being treated for pericarditis
Impression / Plan
-
PCP: Dr. Delroy Dhillon
Cardiology: Dr. Arce
Impression:
CAD
s/p NSTEMI with BMS to LAD and PTCA Diag-1 01/2007
s/p CABG 10/31/23
Afib with RVR
Paroxysmal Afib with RVR post-op that spontaneously converted to SR
diagnosed following Linq implant 01/2021
Chronic sotalol therapy
Chronic Eliquis OAC
Linq implant 01/2021
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
h/o CVA 01/2015
HTN
Hyperlipidemia
LAZARUS on CPAP
Stress echo 06/11/14: Completed 13 METS, EF 55-60%, no evidence of myocardial ischemia on SE images
Echo 01/30/15: EF 55-60%, trace MR, no aortic regurgitation
JENNA 01/07/21: EF 55-60%, no thrombus in KEV, mild to mod aortic plaque, mildly dilated aortic root 4.0 cm at Sinus of Valsalva, normal interatrial septum, no evidence of shunt by color flow Doppler or agitated saline
Plan:
-Immediate post-op ECG was in SR on 10/31/23, but patient recurred with Afib and has known paroxysmal Afib. Chronically on sotalol 40 mg BID and last dose was 10/30/23 PM. Amiodarone gtt started 10/31/23 afternoon and patient later converted to SR.
Remains in SR/SB on 11/01/23 AM. Currently ordered amiodarone 200 mg TID.
-QTc 468 ms on ECG 11/01/23
-Patient is chronically on Eliquis 5 mg BID which was held for surgery. He had KEV ligation 10/31/23 and no flow is noted distal to the clip in the appendage by color Doppler on intra-op JENNA. Plan is to resume Eliquis at time of d/c
-ECG 11/01/23 AM reviewed by me and CT surgery note reviewed, they are treating for pericarditis, colchicine 0.6 mg daily and Toradol 15 mg IV q 6 hours ordered
HPI: Patient had elective cath at 10/24/23 and was found to have restenosis in the mid LAD within the old stent from 2006 and recent stent from 01/2023. The more recent stent was not fully expanded due to the highly fibrotic nature of the
restenotic lesion preventing full stent expansion even with high-pressure balloon inflations. The LAD stented segment had developed recurring 95% in-stent restenosis at the site of recent stenting. Patient was referred to CT surgical team for CABG
evaluation and presented today for elective CABG.
Progress Note - Web Production Manager
Subjective
Date of Service: November 01, 2023
Chest pain earlier is better now
Objective
Labs:
11/01/23 03:08
11/01/23 03:08
Labs
Hgb 14.6 g/dL (13.0-18.0) 11/01/23 03:08
Hct 39.8 % (39.0-52.0) 11/01/23 03:08
Plt Count 159 10^3/uL (130-400) 11/01/23 03:08
PT 17.1 Sec (11.4-14.6) H 11/01/23 03:08
INR 1.41 11/01/23 03:08
APTT 30.6 Sec (23.4-35.0) 10/31/23 16:18
Sodium 138 mmol/L (135-145) 11/01/23 03:08
Potassium 4.1 mmol/L (3.5-5.1) 11/01/23 03:08
BUN 17 mg/dl (9-20) 11/01/23 03:08
Creatinine 0.7 mg/dL (0.7-1.3) 11/01/23 03:08
Glucose 113 mg/dl (70-99) H 11/01/23 03:08
Vital Signs and I&O:
Vital Signs
Temp Pulse Resp BP Pulse Ox
97.7 F 53 16 123/74 94
11/01/23 12:03 11/01/23 12:00 11/01/23 12:03 11/01/23 12:00 11/01/23 12:03
Vital Signs
Temp Pulse Resp BP Pulse Ox
97.7 F 53 16 123/74 94
11/01/23 12:03 11/01/23 12:00 11/01/23 12:03 11/01/23 12:00 11/01/23 12:03
Intake & Output
10/30/23 10/31/23 11/01/23 11/02/23
06:59 06:59 06:59 06:59
Intake Total 723.8 / 735.1 289.6 / 289.6
Output Total 1230 / 1290 585 / 585
Balance -506.2 / -554.9 -295.4 / -295.4
Physical Exam
Physical Exam
GEN: NAD. AAOx3
HEENT: MMM
LUNGS: on RA, no audible wheeze
CV: SR on tele
ABD: ND
EXT: No edema B/L
NEURO: Gross non-focal
SKIN: No rash
--- NOTE | 2023-11-01 12:40 | PTCARENOTE ---
pt OOB to chair, at bedside, Sinus Kyaw per tele, VSS, assessment remains unchanged
[2023-11-01] MEDS: NSS IV (14:41)
[2023-11-01] MEDS: FERRLECIT 110 MG IV (16:07)
--- NOTE | 2023-11-01 16:33 | PTCARENOTE ---
VS obtained, assessment stable. Cordis kinked, d/c'd. Patient resting comfortably, states pain controlled.
[2023-11-01 16:56] LABS: Glucose - Point of Care 108 mg/dl (70-99)
[2023-11-01 16:56] LABS: Glucose - Point of Care 140 mg/dl (70-99)
[2023-11-01 16:56] LABS: Glucose - Point of Care 179 mg/dl (70-99)
[2023-11-01] MEDS: CRESTOR 20 MG PO (18:01)
[2023-11-01] MEDS: THIAMINE INJECTION 200 MG IV (19:50)
--- NOTE | 2023-11-01 20:00 | PTCARENOTE ---
assumed care of pt from previous RN. pt A&Ox4, resting in chair at time of assessment. sinus bradycardia to sinus rhythm on tele-monitor. no temp epicardial pacing wires. POX 96% on RA. CTx1 (mediastinal) to -20cm wall suction, draining sanguineous
drainage. no air leaks noted or crepitus noted. abd s/n, +BS. pt confirmed passing flatus. pt voiding clear, yellow urine. all surgical sites stable. PIV intact. see worklist for complete nursing assessment, interventions, VS, and I&Os.
[2023-11-01 21:13] LABS: Glucose - Point of Care 193 mg/dl (70-99)
[2023-11-02] VITALS (12 sets, daily range): BP systolic 111–156; BP diastolic 65–91; PULSE 51; O2SAT 97–98; BMI 27.3
--- NOTE | 2023-11-02 | PTCARENOTE ---
assessment remains unchanged. VSS. CT drainage WNL.
--- NOTE | 2023-11-02 04:00 | PTCARENOTE ---
assessment remains unchanged. VSS. CT drainage WNL. AM labs collected and sent. EKG completed.
[2023-11-02 04:49] LABS: Hematocrit 39.3 % (39.0-52.0); Hemoglobin 14.3 g/dL (13.0-18.0); Mean Corp Hgb Conc. 36.4 g/dL (33.0-37.0); Mean Corpuscular Hgb 31.9 pg (27.0-31.0); Mean Corpuscular Volume 87.7 fL (80.0-94.0); Mean Platelet Volume 9.4 fL (7.4-10.4); Platelet Count 147 10^3/uL (130-400); Red Blood Cell Count 4.48 10^6/uL (4.70-6.10); Red Cell Dist. Width 12.6 % (11.5-14.5); White Blood Cell Count 14.5 10^3/uL (4.8-10.8)
[2023-11-02 05:13] LABS: Blood Urea Nitrogen 24 mg/dl (9-20); Calcium 8.8 mg/dl (8.4-10.2); Carbon Dioxide 26 mmol/L (22-30); Chloride 100 mmol/L (98-107); Estimated Creatinine Clearance 91 ml/min; Glucose 154 mg/dl (70-99); Magnesium 2.2 mg/dl (1.6-2.3); Potassium 4.2 mmol/L (3.5-5.1); Sodium 136 mmol/L (135-145); eGFR > 60.00
--- NOTE | 2023-11-02 05:51 | W.PN.CT ---
Today's Communication / Plan
-
-pod #2
-no significant issues overnight
-sinus cirilo high 40s-mid 50s overnight. Sotalol is to restart this am 40 mg bid (same dose at home). Will hold BB this am d/t bradycardia and review with Cardiology (of note, preop ECG with hr 41 sinus cirilo)
-med CT 145/265 in 1224 hrs
-labs are stable
-weaned off O2 - pOx 96% RA
-continue current meds
-encourage IS, OOB
Assessment / Plan
-
Assessment:
-S/P Robotic assisted MIDCAB (single-vessel bypass GAXIOLA in situ to LAD)/ Robotic assisted harvest of internal mammary artery with anterolateral mini thoracotomy for CABG/ Left atrial appendage ligation, 35mm clip, by Dr. Snyder, 10/31/23, pod#2
-Coronary artery disease involving the proximal LAD, in-stent restenosis
-Unstable angina
-Hx NSTEMI S/P PCI with BMS to LAD and PTCA to D1, 01/2007
-LVEF 60% per intraop JENNA
-Mild dilated asc. aorta (3.7 cm)
-Hx CVA (2014 and 2020) S/P Linq recorder implant, 01/2021
-PAF (on chronic Eliquis)
-HTN
-HLD
-T2DM (hgb A1C 5.8)
-LAZARUS (uses CPAP)
-S/p b/l mastoidectomy
-S/p R rotator cuff repair
-Preop bradycardia low 40s
-Acute postop atelectasis
-Acute postop hypovolemia with subsequent hypervolemia
-Acute postop EKG changes c/w acute pericarditis (+rub)
-Acute postop A-fib with RVR, converted on Amiodarone bolus x 1 and gtt- Sotalol restarted 11/02/23
Discussed patient care with: Nursing and Care Team
Subjective
Procedure
S/P Robotic assisted MIDCAB (single-vessel bypass GAXIOLA in situ to LAD)/ Robotic assisted harvest of internal mammary artery with anterolateral mini thoracotomy for CABG/ Left atrial appendage ligation, 35mm clip, by Dr. Snyder, 10/31/23
-
Date of Service: November 02, 2023
Objective Data
-
Lab Results
11/02/23 04:23
11/02/23 04:23
PT 17.1 Sec (11.4-14.6) H 11/01/23 03:08
INR 1.41 11/01/23 03:08
APTT 30.6 Sec (23.4-35.0) 10/31/23 16:18
Vital Signs
Vital Signs
Temp Pulse Resp BP Pulse Ox
98.1 F 55 14 143/76 97
11/02/23 00:00 11/02/23 04:08 11/02/23 04:00 11/02/23 04:08 11/02/23 04:08
CT Intake/Output/Weight
11/01/23 11/01/23 11/02/23
06:59 18:59 06:59
Intake Total 547.7 / 735.1 549.6 / 549.6
Output Total 745 / 1290 945 / 1190 245 / 1190
Balance -197.3 / -554.9 -395.4 / -640.4 -245 / -640.4
SaO2: 97
Physical Exam
-
General: Awake and AOx3
Cardiovascular: Regular rate & rhythm, No Murmurs and No Rub
Respiratory: Decreased Breath Sounds
Sternum: Stable
Incision: Clean, Dry and Intact
Extremities: Other (trace edema b/l, 2+ PT b/l)
Abdomen: soft, nontender, no nausea, mildly distended, +decreased bowel sounds
Data Reviewed
-
Lab Results: Results Reviewed
Medications: Active Meds Reviewed
Chest X-Ray: Report Reviewed and Image Reviewed
ECG: Report Reviewed and Image Reviewed
[2023-11-02] MEDS: TYLENOL 1000 MG PO ×3 (06:08→20:41)
--- NOTE | 2023-11-02 08:00 | PTCARENOTE ---
Assumed care of patient from maintenance supervisor 2nd shift RN. SONIAO x 3. Sitting up in the chair. Pt in very good spirits and states eagerness to ambulate today. SB on monitor QT measured 0.44. Room air 97%. Denies cough or SOB at present. Using IS to 1999.
Abdomen soft and non tender passing flatus. appetite good. Voiding w/o issue. DP pulses palpable. LT chest wall swollen but soft to touch. Surgical sites well approximated with surgical adhesive. Plan for day discussed.
[2023-11-02] MEDS: BACTROBAN 2% OINTMENT 1 APPLIC NASAL ×2 (08:24→20:42)
[2023-11-02] MEDS: LOW STRENGTH ASPIRIN 81 MG PO (08:24)
[2023-11-02] MEDS: PLAVIX 75 MG PO (08:24)
[2023-11-02] MEDS: MAGNESIUM OXIDE 500 MG PO ×2 (08:25→20:41)
[2023-11-02] MEDS: BETAPACE 40 MG PO ×2 (08:25→20:39)
[2023-11-02] MEDS: PROTONIX 40 MG PO (08:25)
[2023-11-02] MEDS: FARXIGA 10 MG PO (08:25)
[2023-11-02] MEDS: ZESTRIL 10 MG PO (08:25)
[2023-11-02] MEDS: SENOKOT-S 1 TABLET PO (08:25)
[2023-11-02] MEDS: COLCHICINE 0.6 MG PO (08:25)
[2023-11-02] MEDS: FOLVITE PO (08:27)
[2023-11-02] MEDS: THIAMINE INJECTION IV ×2 (08:27→20:43)
[2023-11-02] MEDS: NEURONTIN 100 MG PO ×3 (08:39→20:39)
--- NOTE | 2023-11-02 10:00 | W.PN.CARDCBS ---
Addendum entered and electronically signed by Flip Arce MD 11/02/23 11:58:
I saw and examined the patient.
The MAINTENANCE MILLWRIGHT or PA's note was reviewed and I agree with the note.
Comment: General: Well developed, well nourished in NAD.
Neck: Supple, no JVD, HJR, carotids +2 B/L, no bruits bilaterally.
Heart: Non displaced PMI, RRR, no murmurs, No S3, S4, no rubs.
Lungs: Clear to auscultation
Extremities: No clubbing, cyanosis or edema bilaterally.
Neuro: Grossly nonfocal, awake, alert and oriented x3.
He continues to do very well. He remains in sinus rhythm. Will resume sotalol 40 mg p.o. twice daily that he was on as an outpatient. Eventually resume Eliquis. Discussed with patient and in detail. He is ambulating hallways without issues.
Original Note:
Today's Communication / Plan
-
Post-op Lopressor has been stopped
Outpatient dose of sotalol resumed
Eventually resume Eliquis
Impression / Plan
-
PCP: Dr. Delroy Dhillon
Cardiology: Dr. Arce
Impression:
CAD
s/p NSTEMI with BMS to LAD and PTCA Diag-1 01/2007
s/p CABG 10/31/23
Afib with RVR
Paroxysmal Afib with RVR post-op that spontaneously converted to SR
diagnosed following Linq implant 01/2021
Chronic sotalol therapy
Chronic Eliquis OAC
Linq implant 01/2021
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
h/o CVA 01/2015
HTN
Hyperlipidemia
LAZARUS on CPAP
Stress echo 06/11/14: Completed 13 METS, EF 55-60%, no evidence of myocardial ischemia on SE images
Echo 01/30/15: EF 55-60%, trace MR, no aortic regurgitation
JENNA 01/07/21: EF 55-60%, no thrombus in KEV, mild to mod aortic plaque, mildly dilated aortic root 4.0 cm at Sinus of Valsalva, normal interatrial septum, no evidence of shunt by color flow Doppler or agitated saline
Plan:
-ECG 11/02/23 reviewed by me and patient with sinus bradycardia. QTc 470 ms.
-Cont sotalol 40 mg BID
-Post-op order for Lopressor 12.5 mg BID now on hold.
-Patient is chronically on Eliquis 5 mg BID which was held for surgery. He had KEV ligation 10/31/23 and no flow is noted distal to the clip in the appendage by color Doppler on intra-op JENNA. Plan is to resume Eliquis at time of d/c
-ECG 11/01/23 AM reviewed by me and CT surgery note reviewed, they are treating for pericarditis, colchicine 0.6 mg daily ordered
-Outpatient dose of lisinopril restarted at a lower dose of 10 mg daily and BP stable at 129/65
-LDL 77 on 10/19/23. Outpatient dose of Crestor 20 mg daily has been continued. Consider increasing dose or adding Zetia for goal LDL less than 70.
HPI: Patient had elective cath at 10/24/23 and was found to have restenosis in the mid LAD within the old stent from 2006 and recent stent from 01/2023. The more recent stent was not fully expanded due to the highly fibrotic nature of the
restenotic lesion preventing full stent expansion even with high-pressure balloon inflations. The LAD stented segment had developed recurring 95% in-stent restenosis at the site of recent stenting. Patient was referred to CT surgical team for CABG
evaluation and presented today for elective CABG.
Progress Note - Outpatient Dietitian
Subjective
Date of Service: November 02, 2023
Chest pain with tenderness to palpation
Objective
Labs:
11/02/23 04:23
11/02/23 04:23
Labs
Hgb 14.3 g/dL (13.0-18.0) 11/02/23 04:23
Hct 39.3 % (39.0-52.0) 11/02/23 04:23
Plt Count 147 10^3/uL (130-400) 11/02/23 04:23
PT 17.1 Sec (11.4-14.6) H 11/01/23 03:08
INR 1.41 11/01/23 03:08
APTT 30.6 Sec (23.4-35.0) 10/31/23 16:18
Sodium 136 mmol/L (135-145) 11/02/23 04:23
Potassium 4.2 mmol/L (3.5-5.1) 11/02/23 04:23
BUN 24 mg/dl (9-20) H 11/02/23 04:23
Creatinine 0.8 mg/dL (0.7-1.3) 11/02/23 04:23
Glucose 154 mg/dl (70-99) H 11/02/23 04:23
Vital Signs and I&O:
Vital Signs
Temp Pulse Resp BP Pulse Ox
98.4 F 49 14 129/65 97
11/02/23 08:00 11/02/23 09:00 11/02/23 08:00 11/02/23 08:13 11/02/23 08:13
Vital Signs
Temp Pulse Resp BP Pulse Ox
98.4 F 49 14 129/65 97
11/02/23 08:00 11/02/23 09:00 11/02/23 08:00 11/02/23 08:13 11/02/23 08:13
Intake & Output
10/31/23 11/01/23 11/02/23 11/03/23
06:59 06:59 06:59 06:59
Intake Total 723.8 / 735.1 549.6 / 549.6 480 / 480
Output Total 1230 / 1290 1590 / 1590 40 / 40
Balance -506.2 / -554.9 -1040.4 / -1040.4 440 / 440
Physical Exam
Physical Exam
GEN: NAD. AAOx3
HEENT: MMM
LUNGS: on RA, no audible wheeze
CV: SR on tele
ABD: ND
EXT: No edema B/L
NEURO: Gross non-focal
SKIN: No rash
[2023-11-02 12:30] LABS: Glucose - Point of Care 142 mg/dl (70-99)
[2023-11-02] MEDS: FERRLECIT 110 MG IV (14:15)
[2023-11-02] MEDS: NSS IV (14:16)
--- NOTE | 2023-11-02 15:27 | CM ---
Chart reviewed. Patient is independent of ADLS, lives with his juan a 3 STH, 5 REDD, 0 DME. Plan is for the patient to return home with CT Transitional RN.
[2023-11-02] MEDS: LASIX 40 MG IV (16:15)
[2023-11-02] MEDS: CRESTOR 20 MG PO (16:16)
--- NOTE | 2023-11-02 17:07 | PTCARENOTE ---
Ambulating at [facility] with chest tube off suction while ambulating. Denies pain at present. Voiding independently in hallway. Assessment unchanged from prior.
[2023-11-02 17:27] LABS: Glucose - Point of Care 123 mg/dl (70-99)
--- NOTE | 2023-11-02 20:00 | PTCARENOTE ---
Assumed care of patient at 1900. Patient found oob in chair at time of assessment. Patient is Aox4, follows commands appropriately, moves all extremites. Lung sounds are clear and equal bilaterally, patient is on RA saO2 96%. Heart sounds have a
regular rate and rhythm, patient is SB on the monitor HR in 40s asymptomatic, normal palpable pulses, no observable edema. Patient has active BS in all four quadrants and is voiding in urinal. There is a L upper chest incision approx, gogo noticeably
swollen with ecchymosis around site however is intact, L lateral chest incisions that are approx quotation checker, and CT wound with ABD dressing that is CDI. Patient has R AC 20G PIV available for intermittent infusion. All other VSS. Patient independent and
ambulatory in halls. Patient is stable.
[2023-11-02] MEDS: SENOKOT-S PO (20:42)
[2023-11-03] VITALS (12 sets, daily range): BP systolic 103–140; BP diastolic 51–99; BMI 26.2
--- NOTE | 2023-11-03 01:32 | PTCARENOTE ---
At approx 0117 patient converted to Afib with HR in 80s-80s from previous sinus bradycardia. Patient asymptomatic sleeping at this time. CT PA aware.
[2023-11-03] MEDS: BETAPACE 40 MG PO ×2 (02:12→10:48)
--- NOTE | 2023-11-03 02:53 | PTCARENOTE ---
Per CT PA, administer 40mg Sotalol dose early to hopefully break afib. Patient remains asymptomatic, but reports 'I can feel it' in regards to afib. Will continue to monitor.
[2023-11-03 04:53] LABS: Hematocrit 44.1 % (39.0-52.0); Hemoglobin 15.8 g/dL (13.0-18.0); Mean Corp Hgb Conc. 35.8 g/dL (33.0-37.0); Mean Corpuscular Hgb 30.9 pg (27.0-31.0); Mean Corpuscular Volume 86.3 fL (80.0-94.0); Mean Platelet Volume 9.6 fL (7.4-10.4); Platelet Count 167 10^3/uL (130-400); Red Blood Cell Count 5.11 10^6/uL (4.70-6.10); White Blood Cell Count 10.2 10^3/uL (4.8-10.8)
[2023-11-03 05:17] LABS: Blood Urea Nitrogen 19 mg/dl (9-20); Calcium 9.3 mg/dl (8.4-10.2); Carbon Dioxide 28 mmol/L (22-30); Chloride 100 mmol/L (98-107); Estimated Creatinine Clearance 81 ml/min; Glucose 115 mg/dl (70-99); Magnesium 2.3 mg/dl (1.6-2.3); Potassium 4.1 mmol/L (3.5-5.1); Sodium 143 mmol/L (135-145); eGFR > 60.00
--- NOTE | 2023-11-03 05:22 | W.PN.CT ---
Today's Communication / Plan
-
-pod #3
-went into a-fib 70s-90s at ~ 1:20 am (feels palpitations)- gave 40 po Sotalol early.
-CT output: med 40/180 in 01/30 hrs
-diuresed with 40 iv Lasix on 11/01 (UO 600/2850+)
-current meds (ASA, Plavix, Sotalol 40 bid, Crestor, Zestril, Farxiga, Colchicine, Protonix, iv iron)
-encourage IS, OOB
Assessment / Plan
-
Assessment:
-S/P Robotic assisted MIDCAB (single-vessel bypass GAXIOLA in situ to LAD)/ Robotic assisted harvest of internal mammary artery with anterolateral mini thoracotomy for CABG/ Left atrial appendage ligation, 35mm clip, by Dr. Snyder, 10/31/23, pod#3
-Coronary artery disease involving the proximal LAD, in-stent restenosis
-Unstable angina
-Hx NSTEMI S/P PCI with BMS to LAD and PTCA to D1, 01/2007
-LVEF 60% per intraop JENNA
-Mild dilated asc. aorta (3.7 cm)
-Hx CVA (2014 and 2020) S/P Linq recorder implant, 01/2021
-PAF (on chronic Eliquis)
-HTN
-HLD
-T2DM (hgb A1C 5.8)
-LAZARUS (uses CPAP)
-S/p b/l mastoidectomy
-S/p R rotator cuff repair
-Preop bradycardia low 40s
-Acute postop atelectasis
-Acute postop hypovolemia with subsequent hypervolemia
-Acute postop EKG changes c/w acute pericarditis (+rub)
-Acute postop A-fib with RVR, converted on Amiodarone bolus x 1 and gtt- Sotalol restarted 11/02/23- back in a-fib 70s-90s on 11/02
Discussed patient care with: Nursing and Care Team
Subjective
Procedure
S/P Robotic assisted MIDCAB (single-vessel bypass GAXIOLA in situ to LAD)/ Robotic assisted harvest of internal mammary artery with anterolateral mini thoracotomy for CABG/ Left atrial appendage ligation, 35mm clip, by Dr. Snyder, 10/31/23
-
Date of Service: November 03, 2023
Objective Data
-
Lab Results
11/03/23 04:22
11/03/23 04:22
PT 17.1 Sec (11.4-14.6) H 11/01/23 03:08
INR 1.41 11/01/23 03:08
APTT 30.6 Sec (23.4-35.0) 10/31/23 16:18
Vital Signs
Vital Signs
Temp Pulse Resp BP Pulse Ox
98.0 F 102 18 133/84 97
11/02/23 23:00 11/03/23 02:12 11/02/23 23:00 11/03/23 02:12 11/02/23 23:00
CT Intake/Output/Weight
11/02/23 11/02/23 11/03/23
06:59 18:59 06:59
Intake Total 960 / 960
Output Total 645 / 1590 2390 / 3030 640 / 3030
Balance -645 / -1040.4 -1430 / -2070 -640 / -0
SaO2: 97
Physical Exam
-
General: Awake and AOx3
Cardiovascular: Irregular rate & rhythm, No Murmurs and No Rub
Respiratory: Decreased Breath Sounds
Sternum: Stable
Incision: Clean, Dry and Intact
Extremities: Other (trace edema b/l)
Data Reviewed
-
Lab Results: Results Reviewed
Medications: Active Meds Reviewed
Chest X-Ray: Report Reviewed and Image Reviewed
ECG: Report Reviewed and Image Reviewed
[2023-11-03] MEDS: TYLENOL 1000 MG PO ×3 (07:16→22:08)
--- NOTE | 2023-11-03 08:00 | PTCARENOTE ---
pt received from previous RN, oriented, OOB in chair. A-fib on the monitor, HR 70-90s. SBP 100s. palpable pulses, no edema. pt on RA, 97% POX. lungs clear. IS encouraged. CT x2, no air leak or crepitus noted. pt abdomen s/n, denies n/v. diet
tolerated well. voids. ambulates independently. surgical incisions intact. PIV. see worklist for VS, I&O, and assessment.
[2023-11-03] MEDS: SENOKOT-S PO (08:39)
[2023-11-03] MEDS: PROTONIX 40 MG PO (08:40)
[2023-11-03] MEDS: MAGNESIUM OXIDE 500 MG PO ×2 (08:40→19:55)
[2023-11-03] MEDS: COLCHICINE 0.6 MG PO (08:40)
[2023-11-03] MEDS: LOW STRENGTH ASPIRIN 81 MG PO (08:41)
[2023-11-03] MEDS: FARXIGA 10 MG PO (08:41)
[2023-11-03] MEDS: PLAVIX 75 MG PO (08:41)
[2023-11-03] MEDS: ELIQUIS 5 MG PO ×2 (08:42→19:55)
[2023-11-03] MEDS: NEURONTIN 100 MG PO ×3 (08:42→22:08)
[2023-11-03] MEDS: LASIX 40 MG IV (08:42)
[2023-11-03] MEDS: BACTROBAN 2% OINTMENT 1 APPLIC NASAL ×2 (08:42→19:57)
[2023-11-03] MEDS: THIAMINE INJECTION 200 MG IV ×2 (08:42→19:55)
[2023-11-03] MEDS: FOLVITE 1 MG PO (08:42)
[2023-11-03] MEDS: NSS IV (09:17)
--- NOTE | 2023-11-03 09:45 | W.PN.CARDCBS ---
Addendum entered and electronically signed by Casey Paige MD 11/03/23 10:45:
I saw and examined the patient.
The Business Executive's note was reviewed and I agree with the note.
Comment:
GEN: No distress, awake, Ox3
HEENT: supple, anicteric, mmm
LUNGS: scatt rhonchi
CV: Irreg, S1/S2, 1/6 syst LSB, no gallop
ABD: soft, BS+, NT/ND
EXT: No edema
NEURO: Gross non-focal
SKIN: incision c/d/i
Plan:
Overall recovering well but back in atrial fibrillation today. Will increase sotalol to 80 mg p.o. twice daily.
May need cardioversion tomorrow if remains in A-fib.
Continue Eliquis and Plavix.
Remains on colchicine for some postoperative pericarditis.
Continue lisinopril and atorvastatin.
Original Note:
Today's Communication / Plan
-
Increase sotalol to 80 mg BID and follow QTc on ECG
NPO in AM for possible CV
Impression / Plan
-
PCP: Dr. Delroy Dhillon
Cardiology: Dr. Arce
Impression:
CAD
s/p NSTEMI with BMS to LAD and PTCA Diag-1 01/2007
s/p CABG 10/31/23
Afib with RVR
Paroxysmal Afib with RVR post-op that spontaneously converted to SR
diagnosed following Linq implant 01/2021
Chronic sotalol therapy
Chronic Eliquis OAC
Linq implant 01/2021
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
h/o CVA 01/2015
HTN
Hyperlipidemia
LAZARUS on CPAP
Stress echo 06/11/14: Completed 13 METS, EF 55-60%, no evidence of myocardial ischemia on SE images
Echo 01/30/15: EF 55-60%, trace MR, no aortic regurgitation
JENNA 01/07/21: EF 55-60%, no thrombus in KEV, mild to mod aortic plaque, mildly dilated aortic root 4.0 cm at Sinus of Valsalva, normal interatrial septum, no evidence of shunt by color flow Doppler or agitated saline
Plan:
-Patient with Linq and at last device check 09/28/23 he had no Afib burden. Patient was in SR immediately post-op 10/31/23, but an hour later was in rapid Afib that was managed with amiodarone gtt and patient spontaneously converted 10/31/23 PM.
Outpatient dose of sotalol 40 mg BID resumed 11/02/23 AM. Patient recurred with Afib 11/03/23 AM. Will increase sotalol to 80 mg BID starting 11/03/23 AM, check ECG 2 hours after each dose to monitor QTc.
-Will make patient NPO 11/04/23 AM and plan on CV in AM if he remains in Afib
-Patient was initially loaded with sotalol 80 mg BID 04/2021, but earlier this year patient reported fatigue and bradycardia and the dose was decreased to 40 mg BID.
-Patient is chronically on Eliquis 5 mg BID which was held for surgery. He had KEV ligation 10/31/23 and no flow is noted distal to the clip in the appendage by color Doppler on intra-op JENNA. Eliquis 5 mg BID restarted 11/03/23 AM.
-Outpatient dose of lisinopril restarted at a lower dose of 10 mg daily and BP stable at 129/65
-LDL 77 on 10/19/23. Outpatient dose of Crestor 20 mg daily has been continued. Consider increasing dose or adding Zetia for goal LDL less than 70.
HPI: Patient had elective cath at 10/24/23 and was found to have restenosis in the mid LAD within the old stent from 2006 and recent stent from 01/2023. The more recent stent was not fully expanded due to the highly fibrotic nature of the
restenotic lesion preventing full stent expansion even with high-pressure balloon inflations. The LAD stented segment had developed recurring 95% in-stent restenosis at the site of recent stenting. Patient was referred to CT surgical team for CABG
evaluation and presented today for elective CABG.
Progress Note - Stage Manager
Subjective
Date of Service: November 03, 2023
He could feel palpitations this morning
Objective
Labs:
11/03/23 04:22
11/03/23 04:22
Labs
Hgb 15.8 g/dL (13.0-18.0) 11/03/23 04:22
Hct 44.1 % (39.0-52.0) 11/03/23 04:22
Plt Count 167 10^3/uL (130-400) 11/03/23 04:22
PT 17.1 Sec (11.4-14.6) H 11/01/23 03:08
INR 1.41 11/01/23 03:08
APTT 30.6 Sec (23.4-35.0) 10/31/23 16:18
Sodium 143 mmol/L (135-145) 11/03/23 04:22
Potassium 4.1 mmol/L (3.5-5.1) 11/03/23 04:22
BUN 19 mg/dl (9-20) 11/03/23 04:22
Creatinine 0.9 mg/dL (0.7-1.3) 11/03/23 04:22
Glucose 115 mg/dl (70-99) H 11/03/23 04:22
Vital Signs and I&O:
Vital Signs
Temp Pulse Resp BP Pulse Ox
98.2 F 92 18 103/75 97
11/03/23 08:00 11/03/23 08:36 11/03/23 08:00 11/03/23 08:42 11/03/23 09:20
Vital Signs
Temp Pulse Resp BP Pulse Ox
98.2 F 92 18 103/75 97
11/03/23 08:00 11/03/23 08:36 11/03/23 08:00 11/03/23 08:42 11/03/23 09:20
Intake & Output
11/01/23 11/02/23 11/03/23 11/04/23
06:59 06:59 06:59 06:59
Intake Total 723.8 / 735.1 549.6 / 549.6 960 / 960 400 / 400
Output Total 1230 / 1290 1590 / 1590 3950 / 3950 400 / 400
Balance -506.2 / -554.9 -1040.4 / -1040.4 -2990 / -2990 0 / 0
Physical Exam
Physical Exam
GEN: NAD. AAOx3
HEENT: MMM
LUNGS: on RA, no audible wheeze
CV: Afib on tele
ABD: ND
EXT: No edema B/L
NEURO: Gross non-focal
SKIN: No rash
[2023-11-03] MEDS: ZESTRIL PO (10:55)
--- NOTE | 2023-11-03 11:24 | CM ---
Chart reviewed. Patient is independent of ADLS, lives with his in a 3 STH, 5 REDD, 0 DME. Plan is for the patient to return home with CT Transitional RN. CM to follow
--- NOTE | 2023-11-03 13:00 | PTCARENOTE ---
pt VSS, no changes in assessment. pt ambulating independently. YULY Grimes aware of QTC on EKG post sotalol.
[2023-11-03] MEDS: FERRLECIT 110 MG IV (14:17)
--- NOTE | 2023-11-03 15:02 | PTCARENOTE ---
pt received as transfer from CVICU into room 3304. Pt AAOX3. ambulating in room without difficulty. Afib on telemetry heart rate 80s. pulses palpable. no edema. pt on room air lung sounds clear diminished in bases. Active bowel sounds. urinating
without difficulty. surgical sites CDI. see worklist for full nursing assessment and medication. pt updated on plan of care and oriented to new room.
--- NOTE | 2023-11-03 15:09 | PTCARENOTE ---
pt converted to NSR at 1500- heart rate 50-60s
[2023-11-03] MEDS: CRESTOR 20 MG PO (17:12)
[2023-11-03] MEDS: SENOKOT-S 1 TABLET PO (19:55)
[2023-11-03] MEDS: BETAPACE 80 MG PO (19:58)
[2023-11-03 22:23] LABS: Glucose - Point of Care 119 mg/dl (70-99)
--- NOTE | 2023-11-04 01:42 | PTCARENOTE ---
Pt received start of shift, HR SB/SR. Pt w/ very pleasant demeanor. Pt ambulating the halls. Pt denies any CP, SOB, lightheadedness/dizziness at this time. Informed to notify RN if any changes, call echeverria within reach.
Pt back to A-fib ~0005 for approximately 46 minutes before spontaneously converting back to SB ~0051. Pt remained asleep during this time.
[2023-11-04 03:30] VITALS: BP 125/75
[2023-11-04 04:01] LABS: Hemoglobin 14.6 g/dL (13.0-18.0); Mean Corp Hgb Conc. 36.5 g/dL (33.0-37.0); Mean Corpuscular Hgb 31.3 pg (27.0-31.0); Mean Corpuscular Volume 85.7 fL (80.0-94.0); Mean Platelet Volume 9.2 fL (7.4-10.4); Platelet Count 168 10^3/uL (130-400); Red Blood Cell Count 4.67 10^6/uL (4.70-6.10); Red Cell Dist. Width 12.9 % (11.5-14.5); White Blood Cell Count 8.4 10^3/uL (4.8-10.8)
[2023-11-04 04:26] LABS: Blood Urea Nitrogen 25 mg/dl (9-20); Calcium 9.2 mg/dl (8.4-10.2); Carbon Dioxide 26 mmol/L (22-30); Chloride 99 mmol/L (98-107); Estimated Creatinine Clearance 81 ml/min; Glucose 116 mg/dl (70-99); Magnesium 2.2 mg/dl (1.6-2.3); Potassium 4.1 mmol/L (3.5-5.1); Sodium 139 mmol/L (135-145); eGFR > 60.00
--- NOTE | 2023-11-04 05:28 | W.PN.CT ---
Today's Communication / Plan
-
-pod #4
-doing well overall, ambulating in hallways
-brief episodes of a-fib 100s overnight- converted spontaneously back to sinus cirilo high 30s-low 50s
-continue Sotalol 80 mg bid (increased dose) and Eliquis
-check Qt in am
-possible d/c home
Assessment / Plan
-
Assessment:
-S/P Robotic assisted MIDCAB (single-vessel bypass GAXIOLA in situ to LAD)/ Robotic assisted harvest of internal mammary artery with anterolateral mini thoracotomy for CABG/ Left atrial appendage ligation, 35mm clip, by Dr. Snyder, 10/31/23, pod#4
-Coronary artery disease involving the proximal LAD, in-stent restenosis
-Unstable angina
-Hx NSTEMI S/P PCI with BMS to LAD and PTCA to D1, 01/2007
-LVEF 60% per intraop JENNA
-Mild dilated asc. aorta (3.7 cm)
-Hx CVA (2014 and 2020) S/P Linq recorder implant, 01/2021
-PAF (on chronic Eliquis)
-HTN
-HLD
-T2DM (hgb A1C 5.8)
-LAZARUS (uses CPAP)
-S/p b/l mastoidectomy
-S/p R rotator cuff repair
-Preop bradycardia low 40s
-Acute postop atelectasis
-Acute postop hypovolemia with subsequent hypervolemia
-Acute postop EKG changes c/w acute pericarditis (+rub)
-Acute postop A-fib with RVR, converted on Amiodarone bolus x 1 and gtt- Sotalol restarted 11/02/23- back in a-fib 70s-90s on 11/02
Discussed patient care with: Nursing and Care Team
Subjective
Procedure
S/P Robotic assisted MIDCAB (single-vessel bypass GAXIOLA in situ to LAD)/ Robotic assisted harvest of internal mammary artery with anterolateral mini thoracotomy for CABG/ Left atrial appendage ligation, 35mm clip, by Dr. Snyder, 10/31/23
-
Date of Service: November 04, 2023
Objective Data
-
PT 17.1 Sec (11.4-14.6) H 11/01/23 03:08
INR 1.41 11/01/23 03:08
APTT 30.6 Sec (23.4-35.0) 10/31/23 16:18
Vital Signs
Vital Signs
Temp Pulse Resp BP Pulse Ox
98.2 F 57 18 140/76 98
11/03/23 22:17 11/03/23 22:17 11/03/23 22:17 11/03/23 22:17 11/03/23 22:17
CT Intake/Output/Weight
11/03/23 11/03/23 11/04/23
06:59 18:59 06:59
Intake Total 980 / 980
Output Total 1560 / 3950 1500 / 2100 600 / 2100
Balance -1560 / -2990 -520 / -1120 -600 / -1120
SaO2: 98
Physical Exam
-
General: Awake and AOx3
Cardiovascular: Irregular rate & rhythm, No Murmurs, No Rub and Other (L chest wall puffiness d/t surgery )
Respiratory: Clear
Incision: Clean, Dry and Intact
Extremities: No Edema
Abdomen: soft, nontender, + BM, no nausea
Data Reviewed
-
Lab Results: Results Reviewed
Medications: Active Meds Reviewed
Chest X-Ray: Report Reviewed and Image Reviewed
ECG: Report Reviewed and Image Reviewed
[2023-11-04 06:00] VITALS: BMI 26.0
[2023-11-04] MEDS: TYLENOL 1000 MG PO (06:01)
--- NOTE | 2023-11-04 06:33 | PTCARENOTE ---
Pt cirilo down to 32 while asleep. In and out of afib through the night. currently SB.
[2023-11-04 07:42] VITALS: BP 169/99
[2023-11-04 07:54] VITALS: BP 133/94
[2023-11-04] MEDS: BETAPACE 80 MG PO (07:56)
--- NOTE | 2023-11-04 08:00 | W.PN.CARDCBS ---
Today's Communication / Plan
-
monitor telemetry this morning; hopeful conversion back to sinus rhythm
If rates are relatively controlled and he remains in A-fib, not opposed stroke to discharge home with outpatient arrhythmia monitoring through Linq and close cardiac follow-up
Given paroxysmal nature of A-fib would not pursue cardioversion at this time.
Continue increased dose of sotalol 80 mg twice daily which was increased yesterday
Could consider outpatient EP evaluation for future ablation
Discussed with CT surgery PA
Impression / Plan
-
PCP: Dr. Delroy Dhillon
Cardiology: Dr. Arce
Impression:
CAD
s/p NSTEMI with BMS to LAD and PTCA Diag-1 01/2007
s/p CABG 10/31/23
Afib with RVR
Paroxysmal Afib with RVR post-op that spontaneously converted to SR
diagnosed following Linq implant 01/2021
Chronic sotalol therapy
Chronic Eliquis OAC
Linq implant 01/2021
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
h/o CVA 01/2015
HTN
Hyperlipidemia
LAZARUS on CPAP
Stress echo 06/11/14: Completed 13 METS, EF 55-60%, no evidence of myocardial ischemia on SE images
Echo 01/30/15: EF 55-60%, trace MR, no aortic regurgitation
JENNA 01/07/21: EF 55-60%, no thrombus in KEV, mild to mod aortic plaque, mildly dilated aortic root 4.0 cm at Sinus of Valsalva, normal interatrial septum, no evidence of shunt by color flow Doppler or agitated saline
Plan:
-S/P Robotic assisted MIDCAB (single-vessel bypass GAXIOLA in situ to LAD)/ Robotic assisted harvest of internal mammary artery with anterolateral mini thoracotomy for CABG/ Left atrial appendage ligation, 35mm clip, by Dr. Snyder, 10/31/23, pod#4
-Hemodynamically stable ambulating in room
-Supportive postoperative care
-Increase rosuvastatin to 40 mg daily. LDL 10/19/1999 2477
-Cardiac rehab
History of paroxysmal atrial fibrillation initially in sinus rhythm this morning however converted to atrial fibrillation after morning self-care and room ambulation
-Outpatient sotalol increased yesterday to 80 mg twice daily
-EKG this morning sinus rhythm with nonspecific ST-T wave changes and QTc 463 ms prior to recurrence of A-fib
-No significant bradycardia/pauses on telemetry overnight
-Monitor telemetry; hopefully patient will convert to sinus rhythm
-Given paroxysmal nature will not plan on cardioversion at this time
-Patient does have Linq implant from 2020 for outpatient A-fib monitoring
-Patient is chronically on Eliquis 5 mg BID which was held for surgery. He had KEV ligation 10/31/23 and no flow is noted distal to the clip in the appendage by color Doppler on intra-op JENNA. Eliquis 5 mg BID restarted 11/03/23 AM.
-Eventual referral to EP as an outpatient for consideration of ablation
Hypertension with blood pressures currently controlled
-Outpatient dose of lisinopril restarted at a lower dose of 10 mg daily and BP stable at 129/65
Discharge planning possible discharge home later today pending heart rates/rhythm
HPI: Patient had elective cath at 10/24/23 and was found to have restenosis in the mid LAD within the old stent from 2006 and recent stent from 01/2023. The more recent stent was not fully expanded due to the highly fibrotic nature of the
restenotic lesion preventing full stent expansion even with high-pressure balloon inflations. The LAD stented segment had developed recurring 95% in-stent restenosis at the site of recent stenting. Patient was referred to CT surgical team for CABG
evaluation and presented today for elective CABG.
Progress Note - [employer] Worker
Subjective
Date of Service: November 04, 2023
Patient seen and examined this morning. Patient had been in sinus rhythm and converted to atrial fibrillation after getting cleaned up in the bathroom and room ambulation. No symptoms of chest pain or pressure. Denies palpitations. No dizziness.
Objective
Labs:
11/04/23 03:42
11/04/23 03:42
Labs
Hgb 14.6 g/dL (13.0-18.0) 11/04/23 03:42
Hct 40.0 % (39.0-52.0) 11/04/23 03:42
Plt Count 168 10^3/uL (130-400) 11/04/23 03:42
PT 17.1 Sec (11.4-14.6) H 11/01/23 03:08
INR 1.41 11/01/23 03:08
APTT 30.6 Sec (23.4-35.0) 10/31/23 16:18
Sodium 139 mmol/L (135-145) 11/04/23 03:42
Potassium 4.1 mmol/L (3.5-5.1) 11/04/23 03:42
BUN 25 mg/dl (9-20) H 11/04/23 03:42
Creatinine 0.9 mg/dL (0.7-1.3) 11/04/23 03:42
Glucose 116 mg/dl (70-99) H 11/04/23 03:42
Vital Signs and I&O:
Vital Signs
Temp Pulse Resp BP Pulse Ox
98 F 113 18 139/94 98
11/04/23 03:30 11/04/23 07:56 11/04/23 03:30 11/04/23 07:56 11/04/23 03:30
Vital Signs
Temp Pulse Resp BP Pulse Ox
98 F 113 18 139/94 98
11/04/23 03:30 11/04/23 07:56 11/04/23 03:30 11/04/23 07:56 11/04/23 03:30
Intake & Output
11/02/23 11/03/23 11/04/23 11/05/23
06:59 06:59 06:59 06:59
Intake Total 549.6 / 549.6 960 / 960 980 / 980
Output Total 1590 / 1590 3950 / 3950 2099 / 2099
Balance -1040.4 / -1040.4 -2990 / -2990 -1120 / -1120
Physical Exam
Physical Exam
GEN: NAD. AAOx3
HEENT: MMM
LUNGS: Bronchovesicular breath sounds clear bilaterally
CV: Regular positive S1/s2, no murmur.--->irregular irregular
ABD: ND + BS
EXT: No edema B/L
Skin: Postsurgical dressing with mild edema/ecchymosis
[2023-11-04] MEDS: FARXIGA 10 MG PO (08:01)
[2023-11-04] MEDS: COLCHICINE 0.6 MG PO (08:01)
[2023-11-04] MEDS: MAGNESIUM OXIDE 500 MG PO (08:01)
[2023-11-04] MEDS: PROTONIX 40 MG PO (08:01)
[2023-11-04] MEDS: PLAVIX 75 MG PO (08:01)
[2023-11-04] MEDS: SENOKOT-S 1 TABLET PO (08:02)
[2023-11-04] MEDS: NEURONTIN 100 MG PO (08:02)
[2023-11-04] MEDS: FOLVITE 1 MG PO (08:02)
[2023-11-04] MEDS: ZESTRIL 10 MG PO (08:02)
[2023-11-04] MEDS: ELIQUIS 5 MG PO (08:03)
[2023-11-04] MEDS: BACTROBAN 2% OINTMENT 1 APPLIC NASAL (08:04)
[2023-11-04 08:18] LABS: Glucose - Point of Care 107 mg/dl (70-99)
--- NOTE | 2023-11-04 09:42 | W.DCSUMMARY ---
Discharge Summary
Discharge Data
Date of Admission: 10/31/23
Date of Discharge: 11/04/23
Total time spent discharging patient (in min): 40
-
Pending Results: No
Hospital Course
Primary care physician:
Dr. Delroy Elias MD.
Outpatient mower mechanic:
Dr. Stew Arce MD.
Inpatient consultants:
[facility]
Procedures:
1. Robotic assisted minimally invasive direct coronary artery bypass grafting (single-vessel bypass with left internal mammary artery to left anterior descending coronary artery).
2. Left atrial appendage ligation, 35mm clip
Primary Diagnosis:
1. Coronary artery disease involving the proximal left anterior descending coronary artery
2. History of myocardial infarction status post stenting, with in-stent restenosis
3. Unstable angina requiring stenting with restenosis
4. Hypertension
5. Hyperlipidemia
6. History of cerebrovascular accident in 2014
7. History of paroxysmal atrial fibrillation
8. Chronic anticoagulation and arrhythmic drugs secondary to paroxysmal atrial fibrillation
9. Obstructive sleep apnea on continuous positive airway pressure machine
10. Prediabetic
11. Postop pericarditis
12. Postoperative paroxysmal atrial fibrillation
Secondary Diagnoses:
1. Coronary artery disease involving the proximal left anterior descending coronary artery
2. History of myocardial infarction status post stenting, with in-stent restenosis
3. Unstable angina requiring stenting with restenosis
4. Hypertension
5. Hyperlipidemia
6. History of cerebrovascular accident in 2014
7. History of paroxysmal atrial fibrillation
8. Chronic anticoagulation and arrhythmic drugs secondary to paroxysmal atrial fibrillation
9. Obstructive sleep apnea on continuous positive airway pressure machine
10. Prediabetic
11. Postop pericarditis
12. Postoperative paroxysmal atrial fibrillation
HPI:
Patient is an extremely pleasant 67-year-old male who had a history of a previous myocardial infarction with stenting in 2006. Patient was doing well however developed restenosis of the stent and new symptoms. He underwent additional PCI with
drug-eluting stent inside of his original bare-metal stent that was placed in January 2023 and later developed in-stent restenosis with symptoms. Patient was seen as an outpatient in consultation to discuss coronary artery revascularization.
Decision was made to undergo single-vessel bypass in the way of robotic assisted minimally invasive direct coronary artery bypass grafting via left internal mammary artery to left anterior descending coronary artery. It was known that the patient
had a history of paroxysmal atrial fibrillation and was on anticoagulation and antiarrhythmics. As a result he will undergo ligation of his left atrial appendage at the time of surgery.
Hospital course:
Patient was admitted electively as an outpatient on the date described above for the procedure described above. Patient tolerated procedure well. He was extubated in the OR and placed on his continuous positive airway pressure machine for
obstructive sleep apnea. Patient was noted to be in atrial fibrillation and was given an amnio bolus and drip postop. Patient progressed in routine fashion. His postoperative course was noted for paroxysmal atrial fibrillation, with conversions
to sinus rhythm. On postoperative day 1 he was noted to have postoperative pericarditis and was started on Toradol and colchicine. He was diuresed with Lasix 40 mg IV and his Cordis was removed. Discussion was had with cardiology and he was
placed back on his home dose of sotalol. He continued diuresis. On postoperative day 3 his chest tubes were removed without issues. Cardiology increase sotalol to 80 mg twice daily. By postoperative day #4 he was ambulating well and continued
with multiple episodes of A-fib/sinus rhythm. Discussion was had with attending physician and he was medically cleared to be discharged to home. On the day of discharge he was diuresed with IV Lasix, and was ordered to resume his home dose of
hydrochlorothiazide.
Home medication changes:
Please pay attention to the following medication changes:
Take Acetaminophen 650 mg Q4H PRN-fever, mild post op pain
Take Colchicine 0.6 mg daily-post op pericarditis
Take Cyclobenzaprine 5 mg Q8H PRN-pain/muscle spasms
Take Gabapentin 100 mg TID PRN-breakthrough pain
Take Lisinopril 10 mg daily-HTN, discuss resuming/increasing dose at follow up with Cardiology (Dr. Claude MD.).
Take Protonix 40 mg daily-GI prophylaxis with Plavix and Eliquis
Take Sotalol 80 mg [id number] paroxysmal atrial fibrillation
Please stop taking the following medications:
Stop taking Aspirin 81 mg daily-Do not take Aspirin while taking Plavix and Eliquis
Stop taking lisinopril 40 mg daily, replace with lisinopril 10 mg daily-HTN.
Stop taking sotalol 40 mg Q12, replace with 80 mg O39-[id number] atrial fibrillation
Please hold the following medications:
Sildenafil 100 mg daily as needed-discuss resuming at follow-up with Dr. Lillian MD.
Discharge Plan
-
Patient Disposition: Home (Routine Discharge)
Discharge Diagnosis/Procedures: Robotic assisted minimally invasive direct coronary artery bypass grafting (single-vessel bypass with left internal mammary artery to left anterior descending coronary artery)
Coronary artery disease involving the proximal left anterior descending coronary artery
History of myocardial infarction status post stenting, with in-stent restenosis
Unstable angina requiring stenting with restenosis
Hypertension
Hyperlipidemia
History of cerebrovascular accident in 2014
History of paroxysmal atrial fibrillation
Chronic anticoagulation and arrhythmic drugs secondary to paroxysmal atrial fibrillation
Obstructive sleep apnea on continuous positive airway pressure machine
Prediabetic
Postop pericarditis
Postoperative paroxysmal atrial fibrillation
Condition: Good
Diet: Low Fat, Low Cholesterol and Low Sodium
Activity: No strenuous activity
Driving Restrictions: Not until seen by your Dr
Bathing Restrictions: OK to Shower
Other Services: Cardiac Rehab
Specialty Instructions: Weigh Daily- Call MD for wt gain/loss 3 lbs overnight/5 lbs in 1 week
Activity Restrictions/Additional Instructions:
ACTIVITY:
-No strenuous activity: no heavy lifting, pushing, pulling anything over 15 pounds for one month
-continue to use stairs as tolerated
DRIVING RESTRICTIONS:
-No driving for one month or until approved by your surgeon
WOUND CARE:
-Shower daily. Use soap & water.
-No lotions, creams or powders on incision area.
DIET:
-continue a low fat/low cholesterol diet.
-IF you are diabetic, continue carb controlled diet.
CARDIAC REHAB:
-Please make appointment to start in 5-6 weeks with your local hospital program. (See Cardiac Rehabilitation Discharge Booklet).
SPECIALTY INSTRUCTIONS:
-Weigh yourself daily. Call your physician for any weight gain/loss of 3 lbs overnight or 5 lbs in one week.
-REPORT any clicking noise or uneven appearance of your sternum to your surgeon immediately.
-If you smoke, you are instructed to quit. The [facility] smoking hotline phone number is [phone]
Referrals:
CT Transitional Care Nurse [Outside] (The Cardiothoracic Transitional Care Nurse will call you to set up a visit in 1-2 days.)
[facility]. Cardiac Rehab [Outside] - 12/02/23 2:00 pm
(Cardiac Rehab Orientation appointment is on Tuesday12/02/23 at 2PM.
The Cardiac Rehab gym is located on the first floor of the [facility].)
Viji Eldridge PA-C [Specified Professional Personl] - 12/12/23 10:40 am
Delroy Dhillon DO [Family Provider] -
Roque Snyder MD [Active] - 12/02/23 12:30 pm
Additional Discharge Medication Instructions: Please pay attention to the following medication changes:
Take Acetaminophen 650 mg Q4H PRN-fever, mild post op pain
Take Colchicine 0.6 mg daily-post op pericarditis
Take Cyclobenzaprine 5 mg Q8H PRN-pain/muscle spasms
Take Gabapentin 100 mg TID PRN-breakthrough pain
Take Lisinopril 10 mg daily-HTN, discuss resuming/increasing dose at follow up with Cardiology (Dr. Claude MD.).
Take Protonix 40 mg daily-GI prophylaxis with Plavix and Eliquis
Take Sotalol 80 mg [id number]-[id number] paroxysmal atrial fibrillation
Please stop taking the following medications:
Stop taking Aspirin 81 mg daily-Do not take Aspirin while taking Plavix and Eliquis
Stop taking lisinopril 40 mg daily, replace with lisinopril 10 mg daily-HTN.
Stop taking sotalol 40 mg Q12, replace with 80 mg I07-pvdzyjutne atrial fibrillation
Please hold the following medications:
Sildenafil 100 mg daily as needed-discuss resuming at follow-up with Dr. Lillian MD.
Prescriptions:
New
sotalol 80 mg Tablet
80 mg PO Q12H Qty: 60 1RF
colchicine 0.6 mg Tablet
0.6 mg PO DAILY Qty: 30 0RF
Rx Instructions:
Take for 30 days and then stop.
cyclobenzaprine 10 mg Tablet
5 mg PO Q8HPRN PRN (Reason: muscle spasm) Qty: 20 0RF
Rx Instructions:
Take 1/2 tab for post op pain/muscle spasm
gabapentin 100 mg Capsule
100 mg PO TID PRN (Reason: Breakthrough pain as needed ) Qty: 30 0RF
Rx Instructions:
Take as needed for post op breakthrough pain
pantoprazole 40 mg Tablet,Delayed Release (Dr/Ec)
40 mg PO DAILY Qty: 30 0RF
Rx Instructions:
GI prophylaxis with Plavix and Eliquis. Obtain refills from PCP/Cardiology
acetaminophen 325 mg Tablet
650 mg PO Q4HPRN PRN (Reason: mild pain,headache,temp >101F ) Qty: 0 0RF
Rx Instructions:
Please purchase over the counter.
lisinopril 10 mg Tablet
10 mg PO DAILY Qty: 30 1RF
Rx Instructions:
Discuss resuming/increasing at follow up with Cardiology.
hydrochlorothiazide 25 mg tablet
25 mg PO DAILY Qty: 30 0RF
Continued
Eliquis 5 MG tablet
5 mg PO BID
clopidogrel [Plavix] 75 mg Tablet
75 mg PO DAILY
Jardiance 10 mg Tablet
10 mg PO DAILY
rosuvastatin 20 mg Tablet
20 mg PO DAILY
Held
sildenafil [Viagra] 100 mg Tablet
100 mg PO DAILY PRN (Reason: ED)
Hold Instructions: Hold until seen by Dr. Snyder and discuss resuming.
Discontinued
hydrochlorothiazide 25 MG tablet
25 mg PO DAILY
sotalol 80 MG tablet
40 mg PO BID
lisinopril 40 mg Tablet
40 mg PO DAILY
aspirin [Aspir-81] 81 mg Tablet,Delayed Release (Dr/Ec)
81 mg PO DAILY
Care Plan Goals
Care Plan Goals:
Problem: Readiness for enhanced knowledge related to diagnosis and treatment plan
Goal: Understand your diagnosis and treatment plan needs, including medications if applicable.
Instructions: Know your diagnosis, underlying causes and treatment plan options, including medications if applicable. Consult with your health care team to learn about your diagnosis and treatment plan, including medications if applicable.
Discharge Date and Time
Print Language: PERSIAN
[2023-11-04 09:58] VITALS: BP 107/69
[2023-11-04 10:00] VITALS: BP 107/69; BP 126/72; PULSE 59; O2SAT 97; O2SAT 98
[2023-11-04 10:27] VITALS: BP 126/72
[2023-11-04] MEDS: THIAMINE INJECTION 200 MG IV (10:43)
--- NOTE | 2023-11-04 11:18 | CM ---
CM following for DC planning needs.
Met w/ patient, spouse while ambulating in the roca.
Pt. feels well and is prepared for DC.
Reviewed DC plan for home w/ CT Transitional Care RN. Also reviewed post-op MD appointments + Cardiac Rehab.
Plan is for home w/ CT Transitional Care RN.
== END 2023-11-04 12:14 | disposition home or self-care (01) | DRG 236 ==
LOC: IVU 07:23
PROVIDERS: Clinical Nurse Specialist Acute Care; ADMITTING PHYSICIAN Thoracic Surgery (Cardiothoracic Vascular Surgery); CONSULT PHYSICIAN Internal Medicine Critical Care Medicine; FAMILY PHYSICIAN Family Medicine
PROC: B24BZZ4 Ultrasonography of Heart with Aorta, Transesophageal (ICD-10-PCS; 2023-10-31)
PROC: 5A09357 Assistance with Respiratory Ventilation, Less than 24 Consecutive Hours, Continuous Positive Airway Pressure (ICD-10-PCS; 2023-10-31)
PROC: 4A0305C Measurement of Arterial Flow, Coronary, Open Approach (ICD-10-PCS; 2023-10-31)
PROC: 02100A9 Bypass Coronary Artery, One Artery from Left Internal Mammary with Autologous Arterial Tissue, Open Approach (ICD-10-PCS; 2023-10-31)
PROC: 3E033RZ Introduction of Antiarrhythmic into Peripheral Vein, Percutaneous Approach (ICD-10-PCS; 2023-10-31)
PROC: 02L70CK Occlusion of Left Atrial Appendage with Extraluminal Device, Open Approach (ICD-10-PCS; 2023-10-31)
PROC: 8E0W0CZ Robotic Assisted Procedure of Trunk Region, Open Approach (ICD-10-PCS; 2023-10-31)
DX: T82.855A Stenosis of coronary artery stent, initial encounter (principal); I25.110 Atherosclerotic heart disease of native coronary artery with unstable angina pectoris; J98.11 Atelectasis; I30.9 Acute pericarditis, unspecified; I97.190 Other postprocedural cardiac functional disturbances following cardiac surgery; I48.20 Chronic atrial fibrillation, unspecified; Y83.1 Surgical operation with implant of artificial internal device as the cause of abnormal reaction of the patient, or of later complication, without mention of misadventure at the time of the procedure; I11.9 Hypertensive heart disease without heart failure; E78.5 Hyperlipidemia, unspecified; E86.1 Hypovolemia; E87.70 Fluid overload, unspecified; Y83.2 Surgical operation with anastomosis, bypass or graft as the cause of abnormal reaction of the patient, or of later complication, without mention of misadventure at the time of the procedure; Y92.239 Unspecified place in hospital as the place of occurrence of the external cause; I48.0 Paroxysmal atrial fibrillation; G47.33 Obstructive sleep apnea (adult) (pediatric); R73.03 Prediabetes; I25.2 Old myocardial infarction; Z86.73 Personal history of transient ischemic attack (TIA), and cerebral infarction without residual deficits; Z79.01 Long term (current) use of anticoagulants; Y92.9 Unspecified place or not applicable; Z82.49 Family history of ischemic heart disease and other diseases of the circulatory system; Z83.3 Family history of diabetes mellitus; Z79.02 Long term (current) use of antithrombotics/antiplatelets; Z79.82 Long term (current) use of aspirin; Z87.19 Personal history of other diseases of the digestive system
CPT/HCPCS: 36415; 71045; 80048; 80053; 81003; 82248; 82330; 82565; 82805; 82947; 82962; 83036; 83735; 84132; 84302; 84520; 85014; 85018; 85025; 85027; 85049; 85610; 85730; 86803; 86850; 86900; 86901; 86920; 87070; 93005; 93312; 93320; 93325; 93880; J2916

== ENCOUNTER 2023-11-25 12:08 | Emergency (ER) | payer MEDICARE, SELFPAY ==
[2023-11-25 12:18] VITALS: BP 146/80
[2023-11-25 12:38] LABS: % Basophils 0.2 % (0-2); % Eosinophils 0.6 % (0-6); % Immature Granulocytes 0.3 % (0-0.5); % Lymphocytes 10.9 % (20.5-51.1); % Monocytes 8.5 % (1.7-9.3); % Neutrophils 79.5 % (42.2-75.2); Absolute Eosinophils 0.1 10^3/uL (0-0.7); Absolute Monocytes 0.8 10^3/uL (0.1-0.6); Absolute Neutrophils 7.5 10^3/uL (1.4-6.5); Hematocrit 42.8 % (39.0-52.0); Hemoglobin 14.9 g/dL (13.0-18.0); Mean Corp Hgb Conc. 34.8 g/dL (33.0-37.0); Mean Corpuscular Hgb 30.3 pg (27.0-31.0); Mean Platelet Volume 8.3 fL (7.4-10.4); Nucleated Red Blood Cells % 0 % (-); Platelet Count 230 10^3/uL (130-400); Red Blood Cell Count 4.92 10^6/uL (4.70-6.10); Red Cell Dist. Width 12.6 % (11.5-14.5); White Blood Cell Count 9.4 10^3/uL (4.8-10.8)
[2023-11-25 12:48] LABS: ALT (SGPT) 23 U/L (0-50); AST (SGOT) 26 U/L (17-59); Albumin 4.5 g/dl (3.5-5.0); Alkaline Phosphatase 43 U/L (38-126); Blood Urea Nitrogen 18 mg/dl (9-20); Calcium 9.4 mg/dl (8.4-10.2); Carbon Dioxide 30 mmol/L (22-30); Chloride 98 mmol/L (98-107); Glucose 190 mg/dl (70-99); Potassium 4.3 mmol/L (3.5-5.1); Sodium 138 mmol/L (135-145); Total Bilirubin 0.7 mg/dl (0.2-1.3); Total Protein 6.9 g/dl (6.3-8.2); eGFR > 60.00
[2023-11-25 13:03] LABS: Troponin I 0.056 ng/ml
[2023-11-25 13:07] VITALS: BP 122/79
[2023-11-25 13:16] VITALS: BMI 25.9
--- NOTE | 2023-11-25 13:23 | ED.GENMED ---
History of Present Illness
General
Chief Complaint: Breathing Problem
Time Seen by Provider: 11/25/23 13:06
History of Present Illness
History of Present Illness:
67-year-old male with history of CAD status post CABG (robotic assisted minimally invasive CABG x 1 performed at this hospital just under 1 month ago) presents for evaluation of pleuritic chest pain that began today. States he feels comparable to
his symptoms began immediately postoperatively and he was diagnosed with pericarditis. He remains on colchicine as well as anticoagulants and Plavix at this time. Pain is worse when he is supine. He denies any laterality to the pain. No fevers
or chills.
Past History
Past History
ED Past Medical History: CAD, CVA, HTN, Hypercholesterolemia, MT and Other (Dizziness)
ED Past Surgical History: Cardiac (Cardiac Stents), Orthopedic (R rotator cuff repair) and Other (Trauma to the left foot requiring surgery, I&D, ear tube, mastoidectomy as a child)
Social History
Tobacco: Non-smoker
Alcohol: Occasional
Drug: None
Personal:
Living: with family
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
Family History
Family History: Other (reviewed and non-contributory)
Review of Systems
Review of Systems
Allergies reviewed?: Yes
All Other Systems: ROS reviewed and negative except as documented in HPI and ROS
Phy Exam
Physical Exam
Physical Exam:
GEN: Well appearing, NAD, WDWN
HEENT: Oral mucosa moist, no scleral icterus
Cardiac: Regular rate and rhythm, no obvious murmur or rub
Lung: No respiratory distress, no tachypnea, lungs globally clear to auscultation
Chest: Well-approximated incisions to the left pectoral and left mid axillary chest with mild ecchymosis, no discharge, fluctuance, or crepitus
MSK: No gross deformity or injuries
Skin: Good color, no pallor or jaundice, no rashes
Neuro: AO x3, moves all extremities freely
Psych: Calm, cooperative
Scores
Heart Failure Risk
Heart Failure Risk Score: Not Applicable
Course
Orders/Labs/Results
Orders:
Orders
11/25/23 12:10
Electrocardiogram (*1) Urgent
Reason for Study: Chest Pain
EKG- Treatment ONCE
11/25/23 12:28
Complete Blood Count/With Diff Urgent
Comprehensive Metabolic Panel Urgent
Troponin I Urgent
11/25/23 13:22
CR Chest - 2 Views Urgent
Comment:
Reason For Exam: pleuritic chest pain 3 wk s/p CABG
11/25/23 14:21
EKG- Treatment ONCE
11/25/23 15:30
EKG [Electrocardiogram (*1)] Routine
Reason for Study: Chest Pain
11/25/23 15:40
Troponin I Routine
Abnormal Lab Results
11/25/23 11/25/23
12:28 15:40
Absolute Neuts (auto) 7.5 H 10^3/uL
(1.4-6.5)
Absolute Lymphs (auto) 1.0 L 10^3/uL
(1.2-3.4)
Absolute Monos (auto) 0.8 H 10^3/uL
(0.1-0.6)
Neutrophils % 79.5 H %
(42.2-75.2)
Lymphocytes % 10.9 L %
(20.5-51.1)
Glucose 190 H mg/dl
(70-99)
Troponin I 0.056 H* ng/ml 0.057 H* ng/ml
11/25/23 12:28
11/25/23 12:28
Vital Signs
Initial and Last Documented VS:
Initial Vital Signs
Temp Pulse Resp BP Pulse Ox
97.8 F 66 16 146/80 98
11/25/23 12:18 11/25/23 12:18 11/25/23 12:18 11/25/23 12:18 11/25/23 12:18
Last Documented Vital Signs
Temp Pulse Resp BP Pulse Ox
97.8 F 66 20 112/70 98
11/25/23 12:18 11/25/23 16:45 11/25/23 16:45 11/25/23 16:00 11/25/23 16:45
MDM/Problems Addressed
MDM/Problems Addressed:
67-year-old male presenting with atypical chest pain shortly after minimally invasive CABG. His pain is reproducible on exam however troponin is slightly elevated. He was seen in conjunction with cardiology who feels musculoskeletal etiology is
most likely, repeat troponin remained flat and thus there is no concern for any acute coronary syndrome. Given that the pain is reproducible, and the patient continues with colchicine, low suspicion for recurrent pericarditis. Suitable for
discharge to home and outpatient CT surgery follow-up
Comment
Comment:
EKG independently interpreted by me shows normal sinus rhythm at a rate of 67, no obvious ischemic changes however significant patient motion artifact limits interpretation
*Critical Care Note
Total Time (30-74mins, 75-104mins- exclusive of procedures): Not Applicable
ED Attending Note
-
Portions of this chart may have been created with voice recognition software.� Occasional wrong word or��sound alike� substitutions may have occurred due to the inherent limitations of voice recognition software.
Discharge Plan
Departure
Patient Disposition: Home (Routine Discharge)
Date of Disposition: 11/25/23
Time of Disposition: 16:36
Patient with high blood pressure during this ER visit?: No
Discharge Problem:
Atypical chest pain
Instructions: Chest Pain (DC)
Prescriptions:
New
oxycodone 5 mg tablet
5 mg PO TID PRN (Reason: Pain) Qty: 10 0RF
No Action
Eliquis 5 MG tablet
5 mg PO BID
clopidogrel [Plavix] 75 mg Tablet
75 mg PO DAILY
Jardiance 10 mg Tablet
10 mg PO DAILY
rosuvastatin 20 mg Tablet
20 mg PO QPM
sotalol 80 mg Tablet
80 mg PO Q12H Qty: 60 1RF
colchicine 0.6 mg Tablet
0.6 mg PO DAILY Qty: 30 0RF
Rx Instructions:
Take for 30 days and then stop.
cyclobenzaprine 10 mg Tablet
5 mg PO Q8HPRN PRN (Reason: muscle spasm) Qty: 20 0RF
Rx Instructions:
Take 1/2 tab for post op pain/muscle spasm
gabapentin 100 mg Capsule
100 mg PO TID PRN (Reason: Breakthrough pain as needed ) Qty: 30 0RF
Rx Instructions:
Take as needed for post op breakthrough pain
pantoprazole 40 mg Tablet,Delayed Release (Dr/Ec)
40 mg PO DAILY Qty: 30 0RF
acetaminophen 325 mg Tablet
650 mg PO Q4HPRN PRN (Reason: mild pain,headache,temp >101F ) Qty: 0 0RF
lisinopril 10 mg Tablet
10 mg PO DAILY Qty: 30 1RF
hydrochlorothiazide 25 mg tablet
25 mg PO DAILY Qty: 30 0RF
Referrals:
Delroy Dhillon DO [Family Provider] -
Roque Snyder MD [Active] -
Activity Restrictions/Additional Instructions:
At this time we suspect a musculoskeletal chest pain as the cause of your symptoms. Please continue all previously prescribed medications and follow-up with CT surgery next week as planned. I have prescribed you a small quantity of pain medicine
should the symptoms worsen over the weekend
Interventions
Interventions:
*Risk Screen - Suicide Last Done: 11/25/23 12:18
*General Assessment Last Done: 11/25/23 12:18
*Neglect/Abuse Screening Last Done: 11/25/23 12:18
ED- Fall Risk Assessment Last Done: 11/25/23 13:16
*ED COVID-19 Vaccine History Last Done: 11/25/23 13:19
*Nursing Disposition Last Done: 11/25/23 17:05
ED- Cardiac Assessment Last Done: 11/25/23 13:16
ED- Pulmonary Assessment Last Done: 11/25/23 13:16
Discharge Date and Time
Discharge Date/Time: 11/25/23 17:07
Print Language: MAORI
[2023-11-25 15:20] VITALS: BP 123/83
--- NOTE | 2023-11-25 15:40 | CON.CAR ---
Addendum entered and electronically signed by Octavio Graves DO 11/25/23 18:00:
I saw and examined the patient.
The [place] Folder's note was reviewed and I agree with the note.
Comment:
Patient with intermittent chest pain worse with deep inspiration and palpitation; relieved with position change and less deep inspiration. No exertional component, does not feel like prior chest pain which prompted CAD. Patient remains adherent to
cardiac medications. Patient reports poor night sleep, PAF with significant symptoms, and increased physical activity for exercise. Additionally, he noted systolics around 90 this AM which is unusual for him. Patient has scheduled follow-up with "Chad"Lillian on 11/29 with cardiac rehab that Friday 12/01.
EKG SR without significant STT changes, no changes to prior ecg
Initial troponin 0.056; if second troponin is unchanged or lower with improving symptoms, patient stable for DC without further work-up at this time given close follow-up this week
CP appears less likely ischemic in the setting of recent revascularization, symptoms, and reproducible nature; also noted improvement with acetaminophen
Continue current medical therapy including colchicine; monitor BP; if worsening CP or changed symptoms patient advised to return to
Original Note:
Consultation
Consultation Request
Date/Time Consultation Performed: 11/25/23
Requesting Provider: Main Martins PA-C
Performing Provider: Angela Pack PA-C for Dr. Graves
Reason for Consultation: CP
Medical History
-
Chief Complaint: CP
History of Present Illness:
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 Postoperatively he had pericarditis and was started on
colchicine. He also had post op paroxysmal afib and was restarted on sotalol and eliquis. He reports since leaving the hospital he has been in and out of afib. He reports he was in it for much of the night last night and had an 'awful night's
sleep'. He states then this morning he noted chest discomfort with taking a deep breath, reminiscent of his post op pericarditis pain. He reports he bent over in the shower and the pain was significantly worse causing him to come to ER. Also reports
this morning his BP was 90/60, which he states is the lowest it has been. He reports the last several days he has been walking ~1 hour and felt well with this. Due to start cardiac rehab on this upcoming Tuesday.
PMH:
CAD
s/p NSTEMI with BMS to LAD and PTCA Diag-1 01/2007
s/p Robotic assisted MIDCAB (single-vessel bypass GAXIOLA in situ to LAD)/ Robotic assisted harvest of internal mammary artery with anterolateral mini thoracotomy for CABG/ Left atrial appendage ligation 10/31/23
Afib with RVR
Paroxysmal Afib
diagnosed following Linq implant 01/2021
post op afib
Chronic sotalol therapy
Chronic Eliquis OAC
Linq implant 01/2021
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
h/o CVA 01/2015
HTN
Hyperlipidemia
LAZARUS on CPAP
Past Medical History
Past Medical History: Other (in HPI)
Social History
Tobacco: Non-Smoker
Personal:
Living: With Family
Employment: Retired
Family History
Family History: Cancer, Diabetes and Hypertension
Allergies / Home Medications
Allergy/AdvReac Type Severity Reaction Status Date / Time
No Known Allergies Allergy Verified 10/26/23 11:30
�Medication �Instructions �Recorded �Confirmed �Type
apixaban 5 mg tablet (Eliquis) 5 mg PO BID Blood clot 05/04/21 11/25/23 History
prevention/tx
clopidogrel 75 mg tablet (Plavix) 75 mg PO DAILY Blood Clot 10/24/23 11/25/23 History
Prevention/Tx
empagliflozin 10 mg tablet 10 mg PO DAILY Diabetes 10/24/23 11/25/23 History
(Jardiance)
rosuvastatin 20 mg tablet 20 mg PO QPM High Cholesterol 10/26/23 11/25/23 History
acetaminophen 325 mg tablet 650 mg (2 x 325 mg) PO Q4HPRN PRN 11/04/23 11/25/23 Rx
mild pain,headache,temp >101F #0
tabs
colchicine 0.6 mg tablet 0.6 mg PO DAILY #30 tabs 11/04/23 11/25/23 Rx
cyclobenzaprine 10 mg tablet 5 mg (1/2 x 10 mg) PO Q8HPRN PRN 11/04/23 11/25/23 Rx
muscle spasm #20 tabs
gabapentin 100 mg capsule 100 mg PO TID PRN Breakthrough 11/04/23 11/25/23 Rx
pain as needed #30 caps
hydrochlorothiazide 25 mg tablet 25 mg PO DAILY #30 tabs 11/04/23 11/25/23 Rx
lisinopril 10 mg tablet 10 mg PO DAILY #30 tabs 11/04/23 11/25/23 Rx
pantoprazole 40 mg tablet,delayed 40 mg PO DAILY GI prophylaxis #30 11/04/23 11/25/23 Rx
release tabs
sotalol 80 mg tablet 80 mg PO Q12H #60 tabs 11/04/23 11/25/23 Rx
Review of Systems
-
History Source: Patient
All other systems: Negative unless noted
Physical Exam
Vital Signs
Temp Pulse Resp BP Pulse Ox
97.8 F 61 25 122/79 98
11/25/23 12:18 11/25/23 13:30 11/25/23 13:30 11/25/23 13:07 11/25/23 12:18
Lab Results
11/25/23 12:28
11/25/23 12:28
Troponin I 0.056 ng/ml H* 11/25/23 12:28
Physical Exam
General: No Apparent Distress and Comfortable
HEENT: Normocephalic, Anicteric and Moist Mucous Membranes
Respiratory: Clear and Non Labored Respirations
Cardiac: S1/S2, Regular Rhythm and Other (reproduction of pain with palpation of right sternal border); Negative Rub
GI: Soft, Non Tender, Non Distended and Normal Bowel Sounds
Musculoskeletal: No Clubbing, No Cyanosis and No Edema
Skin: Warm, Dry and Other (reported numbness of L chest skin)
Neuro: AO x 3
Impression / Plan
-
PCP: Dr. Delroy Dhillon
Cardiology: Dr. Arec
Assessment:
Presentation with CP
Elevated troponin
CAD
s/p NSTEMI with BMS to LAD and PTCA Diag-1 01/2007
s/p Robotic assisted MIDCAB (single-vessel bypass GAXIOLA in situ to LAD)/ Robotic assisted harvest of internal mammary artery with anterolateral mini thoracotomy for CABG/ Left atrial appendage ligation 10/31/23
Afib with RVR
Paroxysmal Afib
diagnosed following Linq implant 01/2021
post op afib
Chronic sotalol therapy
Chronic Eliquis OAC
Linq implant 01/2021
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
h/o CVA 01/2015
HTN
Hyperlipidemia
LAZARUS on CPAP
JENNA 01/07/21: EF 55-60%, no thrombus in KEV, mild to mod aortic plaque, mildly dilated aortic root 4.0 cm at Sinus of Valsalva, normal interatrial septum, no evidence of shunt by color flow Doppler or agitated saline
Intraop JENNA 10/31/23: EF 60%, no regional wall motion abnormalities, mild concentric LVH, all valves functioning normally, mid ascending aorta mildly dilated at 3.7 cm, mild diffuse sessile atheroma in descending aorta and distal arch
Plan:
-Patient presents with pleuritic chest discomfort starting this morning, which was reproducible with palpation of right sternal border in setting of recent robotic assisted MIDCAB
-initial trop 0.056.
-EKGs without acute ST abnormalities, in SR
-appears atypical for ischemic etiology. patient walked yesterday for ~1 hour without chest discomfort
-reports did have afib overnight and was hypotensive this AM
-hgb stable at 14.9
-BPs stable in ER
-would continue current dose of colchicine. no rub observed on examination
-check 2nd trop. if stable/downtrending, likely ok for DC from ER. if trending up, would consider admission for observation/trop trending/possible echo
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 This was also noted previously on CTA from 10/26/23.
-d/w ER PA. d/w patient and at bedside
-notified CT surgery of patient
Data Reviewed
-
EKG: Tracing Personally Visualized and interpreted
Radiology: Report Reviewed by me
CT Scan: Report Reviewed by me
Medical Tests (Nuc Med, Echo etc): Report Reviewed by me
Labs: Labs Reviewed by me
Old Records: Reviewed
[2023-11-25 16:00] VITALS: BP 112/70
[2023-11-25 16:34] LABS: Troponin I 0.057 ng/ml
== END 2023-11-25 17:07 | disposition home or self-care (01) ==
LOC: EMR 12:08
PROVIDERS: Physician Assistant; EMERGENCY PHYSICIAN Emergency Medicine; FAMILY PHYSICIAN Family Medicine; OTHER PHYSICIAN Internal Medicine Cardiovascular Disease
DX: R07.81 Pleurodynia (principal); I25.10 Atherosclerotic heart disease of native coronary artery without angina pectoris; E78.00 Pure hypercholesterolemia, unspecified; I10 Essential (primary) hypertension; I25.2 Old myocardial infarction; I48.0 Paroxysmal atrial fibrillation; G47.33 Obstructive sleep apnea (adult) (pediatric); Z79.01 Long term (current) use of anticoagulants; Z86.73 Personal history of transient ischemic attack (TIA), and cerebral infarction without residual deficits; Z95.1 Presence of aortocoronary bypass graft; Z95.5 Presence of coronary angioplasty implant and graft
CPT/HCPCS: 99285; 71046; 80053; 84484; 85025; 93005

== ENCOUNTER 2023-12-07 08:49 | Outpatient (RCR) | payer MEDICARE, SELFPAY ==
[2023-12-02 14:05] LABS: Glucose - Point of Care 91 mg/dl (70-99)
[2023-12-02 15:12] LABS: Glucose - Point of Care 94 mg/dl (70-99)
== END 2023-12-07 23:59 | disposition home or self-care (01) ==
LOC: CRHB 08:49
PROVIDERS: ATTENDING PHYSICIAN Internal Medicine Cardiovascular Disease; FAMILY PHYSICIAN Nurse Practitioner Adult Health
DX: I25.10 Atherosclerotic heart disease of native coronary artery without angina pectoris (principal); Z95.1 Presence of aortocoronary bypass graft
CPT/HCPCS: 82962; G0422; G0423

== ENCOUNTER 2023-12-28 09:02 | Outpatient (RCR) | payer MEDICARE, SELFPAY | END 2023-12-28 23:59 | disposition home or self-care (01) | LOC: CRHB 09:02 | PROVIDERS: ATTENDING PHYSICIAN Internal Medicine Cardiovascular Disease; FAMILY PHYSICIAN Nurse Practitioner Adult Health | DX: I25.10 Atherosclerotic heart disease of native coronary artery without angina pectoris (principal); Z95.1 Presence of aortocoronary bypass graft | CPT/HCPCS: G0422; G0423 ==